=== PATIENT | male | born 1970 | race Caucasian/White ===

== ENCOUNTER 2021-01-13 23:43 | Inpatient (IN) | payer OTHER ==
[2021-01-14] MEDS ORDERED: ACETAMINOPHEN 500 MG TAB ONE ×2 (00:22→21:08)
[2021-01-14 01:18] LABS: Absolute Lymphocytes (CBC) 0.6 K/uL (0.7-4.9); Basophils % 0.6 % (0-1.3); Hematocrit 44.3 % (39.6-49.0); Lymphocytes % 17.8 % (15.3-44.8); Protime INR 1.21; RBC Red Blood Cell Count 4.59 M/uL (4.33-5.43)
[2021-01-14] MEDS ORDERED: METHYLPREDNISOLONE 125 MG INJ ONE ×3 (01:27→21:07)
[2021-01-14 01:48] LABS: ALT/SGPT 75 U/L (12-78); AST/SGOT 86 U/L (15-37); Albumin 3.5 g/dL (3.4-5.0); Alkaline Phosphatase 53 U/L (45-117); BUN Blood Urea Nitrogen 13 mg/dL (7-18); Bicarbonate 26 mmol/L (21-32); Bilirubin Direct 0.2 mg/dL (0-0.2); Bilirubin Total 0.5 mg/dL (0.2-1.0); Glucose Level 127 mg/dL (74-106); Magnesium 1.9 mg/dL (1.8-2.4); Potassium 3.5 mmol/L (3.5-5.1); Protein, Total 6.8 g/dL (6.4-8.2); Sodium Level 135 mmol/L (136-145); Troponin (Emerg Dept Use Only) < 0.02 ng/mL (0.0-0.045)
[2021-01-14 01:49] LABS: NT PRO-BNP < 5 pg/mL (<125)
--- NOTE | 2021-01-14 02:08 | ER ---
Nurse's Notes [facility] Name: Monty Padgett Age: 50 yrs Sex: Male : 1970 Arrival Date: 01/13/2021 Time: 23:46 Bed 16 Private MD: Diagnosis: Covid pneumonia. Hypoxia Presentation: 01/13 23:53 Chief complaint: Patient states: COVID+ since Monday, has been having severe headache iw and was told if his O2 drops to 93% to come to ER, at home it ranges from 88% to 94%, is also having cough and SOB. Coronavirus screen: Coronavirus screen: Client reports previous positive COVID test result. Ebola Screen: Patient negative for fever greater than or equal to 101.5 degrees Fahrenheit, and additional compatible Ebola Virus Disease symptoms Patient denies exposure to infectious person. Patient denies travel to an Ebola-affected area in the 21 days before illness onset. No symptoms or risks identified at this time. Initial Sepsis Screen: Does the patient meet any 2 criteria? No. Patient's initial sepsis screen is negative. Does the patient have a suspected source of infection?. Risk Assessment: Do you want to hurt yourself or someone else? Patient reports no desire to harm self or others. Onset of symptoms was January 11, 2021. 23:53 Method Of Arrival: Ambulatory iw 23:53 Acuity: SALVADOR 3 iw Historical: - Allergies: 23:56 Ciprofloxacin; iw - Home Meds: 23:56 testosterone [Active]; iw - PMHx: 23:56 Cirrhosis of liver; iw - PSHx: 23:56 None; iw - Immunization history:: Client reports having NOT received the Covid vaccine. - Social history:: Smoking status: Patient denies any tobacco usage or history of. Screenin/05 00:43 Abuse screen: Denies threats or abuse. Nutritional screening: No deficits noted. ea Tuberculosis screening: No symptoms or risk factors identified. Fall Risk None identified. Assessment: 01:00 General: Appears uncomfortable, Behavior is appropriate for age. Pain: Denies pain. ea Neuro: Level of Consciousness is awake, alert, obeys commands, Oriented to person, place, time. Cardiovascular: Patient's skin is warm and dry. Respiratory: Airway is patent Respiratory effort is labored, Respiratory pattern is tachypnea. Derm: Skin is dry, Skin is pale, Skin temperature is warm. Vital Signs: 01/13 23:53 BP 135 / 91; Pulse 101; Resp 20; Temp 103.1; Pulse Ox 94% on R/A; Weight 145.15 kg; iw Height 6 ft. 0 in. (182.88 cm); 01/14 01:13 Resp 26; Pulse Ox 87% ; ea 01:32 Pulse 81; Resp 28; Pulse Ox 95% on 3 lpm NC; ea 01:34 BP 129 / 71; ea 05:51 Pulse 73; Resp 22; Temp 99.6; Pulse Ox 98% on 3 lpm NC; ea 01/13 23:53 Body Mass Index 43.40 (145.15 kg, 182.88 cm) iw 01:13 ambulated approx 50 ft RA sats at 87% pt tachypneic, placed on O2 at 3L per nasal ea cannula ED Course: 01/13 23:46 Patient arrived in ED. wm 23:56 Triage completed. iw 23:57 Arm band placed on. iw 01/14 00:31 CXR XRAY In Process Unspecified. EDMS 00:35 Chad Reese MD is Attending Physician. pkl 00:43 Nai Bravo RN is Primary Nurse. ea 00:43 Patient has correct armband on for positive identification. Bed in low position. Call ea light in reach. Side rails up X2. 01:14 Inserted saline lock: 20 gauge in left antecubital area, using aseptic technique. ea 02:06 Frederick Rodas MD is Hospitalizing Provider. pkl 02:45 CT Chest For PE Angio In Process Unspecified. EDMS 05:50 No provider procedures requiring assistance completed. Patient admitted, IV remains in ea place. Administered Medications: 00:04 Drug: Tylenol 1000 mg Route: PO; iw 01:13 Drug: SOLU-Medrol (methylPrednisoLONE) 125 mg Route: IVP; Site: left antecubital; ea 05:52 Follow up: Response: No adverse reaction ea Outcome: 02:07 Decision to Hospitalize by Provider. pkl 05:51 Admitted to ER Hold. Please see [employer] for further documentation. ea 05:51 Condition: stable 05:51 Instructed on the need for admit, Demonstrated understanding of instructions. 01/15 11:43 Patient left the ED. aa5 Signatures: Dispatcher [employer] Chad Victor MD MD pkl Williams, Irene, RN RN iw Calderon, Audri, RN RN aa5 Nai Bravo RN RN Nilam Hartmann
--- NOTE | 2021-01-14 02:08 | EDPHYS ---
Physician Documentation [facility] Name: Monty Padgett Age: 50 yrs Sex: Male : 1970 Arrival Date: 01/13/2021 Time: 23:46 Bed 16 Private MD: ED Physician Chad Reese HPI: 01/14 00:55 This 50 yrs old Male presents to ER via Ambulatory with complaints of + pkl COVID, OXYGEN BETWEEN 88-94. 00:55 The patient has shortness of breath at rest. Onset: The symptoms/episode began/occurred pkl 3 day(s) ago. Associated signs and symptoms: Pertinent positives: productive cough. Patient tested positive for Covid 19 in this ER 2 days ago.. Historical: - Allergies: 01/13 23:56 Ciprofloxacin; iw - Home Meds: 23:56 testosterone [Active]; iw - PMHx: 23:56 Cirrhosis of liver; iw - PSHx: 23:56 None; iw - Immunization history:: Client reports having NOT received the Covid vaccine. - Social history:: Smoking status: Patient denies any tobacco usage or history of. ROS: 01/14 00:55 Eyes: Negative for injury, pain, redness, and discharge, ENT: Negative for injury, pkl pain, and discharge, Neck: Negative for injury, pain, and swelling, Cardiovascular: Negative for chest pain, palpitations, and edema. Respiratory: Positive for cough, with clear sputum, shortness of breath, at rest. Abdomen/GI: Negative for abdominal pain, nausea, vomiting, and diarrhea. Back: Negative for acute changes. : Negative for urinary symptoms. MS/extremity: Negative for acute changes. Skin: Negative for rash. Neuro: Negative for altered mental status, loss of consciousness. Exam: 00:55 Head/Face: Normocephalic, atraumatic. Eyes: Pupils equal round and reactive to light, pkl extra-ocular motions intact. Lids and lashes normal. Conjunctiva and sclera are non-icteric and not injected. Cornea within normal limits. Periorbital areas with no swelling, redness, or edema. ENT: Nares patent. No nasal discharge, no septal abnormalities noted. Tympanic membranes are normal and external auditory canals are clear. Oropharynx with no redness, swelling, or masses, exudates, or evidence of obstruction, uvula midline. Mucous membranes moist. Neck: Trachea midline, no thyromegaly or masses palpated, and no cervical lymphadenopathy. Supple, full range of motion without nuchal rigidity, or vertebral point tenderness. No Meningismus. Chest/axilla: Normal chest wall appearance and motion. Nontender with no deformity. No lesions are appreciated. Cardiovascular: Regular rate and rhythm with a normal S1 and S2. No gallops, murmurs, or rubs. Normal PMI, no JVD. No pulse deficits. 00:55 Respiratory: mild respiratory distress is noted, Respirations: labored breathing, that is mild, Breath sounds: rales, that are moderate, are scattered. 00:55 Abdomen/GI: Bowel sounds: normal, Palpation: abdomen is soft and non-tender, in all quadrants. 00:55 Back: Exam negative for acute changes. 00:55 : Exam negative for acute changes. 00:55 Musculoskeletal/extremity: Exam is negative for acute changes. 00:55 Skin: Exam negative for rash. 00:55 Neuro: Orientation: is normal, Mentation: is normal, Cranial nerves: grossly normal, Motor: is normal. Vital Signs: 01/13 23:53 BP 135 / 91; Pulse 101; Resp 20; Temp 103.1; Pulse Ox 94% on R/A; Weight 145.15 kg; iw Height 6 ft. 0 in. (182.88 cm); 01/14 01:13 Resp 26; Pulse Ox 87% ; ea 01:32 Pulse 81; Resp 28; Pulse Ox 95% on 3 lpm NC; ea 01:34 BP 129 / 71; ea 05:51 Pulse 73; Resp 22; Temp 99.6; Pulse Ox 98% on 3 lpm NC; ea 01/13 23:53 Body Mass Index 43.40 (145.15 kg, 182.88 cm) iw 01:13 ambulated approx 50 ft RA sats at 87% pt tachypneic, placed on O2 at 3L per nasal ea cannula MDM: 00:35 Patient medically screened. pkl 02:04 Data reviewed: vital signs, nurses notes, lab test result(s), EKG, radiologic studies, pkl plain films. ED course: Talked to Jan Piper ( EFFICIENCY ENGINEER ) Admit to Dr. Frederick Rodas. 01/14 00:45 Order name: Basic Metabolic Panel la1 05 00:45 Order name: CBC with Diff la01/14 00:45 Order name: LFT's la01/14 00:45 Order name: Magnesium la01/14 00:45 Order name: NT PRO-BNP la01/14 00:45 Order name: PT-INR la1 01/14 00:45 Order name: Troponin (emerg Dept Use Only); Complete Time: 19:08 la1 01/14 00:45 Order name: Blood Culture Adult (2); Complete Time: 19:08 la1 01/14 00:45 Order name: CRP; Complete Time: 19:08 la1 01/14 00:45 Order name: Ferritin; Complete Time: 19:08 la1 01/14 00:45 Order name: DD; Complete Time: 01:21 la1 01/14 00:45 Order name: Procalcitonin; Complete Time: 02:08 la1 01/14 00:46 Order name: Basic Metabolic Panel; Complete Time: 19:08 EDMS 01/14 00:46 Order name: CBC with Automated Diff; Complete Time: 01:21 EDMS 01/14 00:04 Order name: CXR XRAY; Complete Time: 19:08 iw 0805 00:46 Order name: Liver (Hepatic) Function; Complete Time: 19:08 EDMS 01/14 00:46 Order name: Magnesium; Complete Time: 19:08 EDMS 01/14 00:46 Order name: NT PRO-BNP; Complete Time: 19:08 EDMS 08 00:46 Order name: Protime (+INR); Complete Time: 01:21 EDMS 01/14 00:54 Order name: Lactate; Complete Time: 01:50 pkl 0805 01:22 Order name: CT Chest For PE Angio; Complete Time: 19:08 pkl 08/06 05:39 Order name: CBC with Automated Diff; Complete Time: 19:08 EDMS 08 05:55 Order name: Comprehensive Metabolic Panel; Complete Time: 19:08 EDMS 08 05:55 Order name: Lipid Profile; Complete Time: 19:08 EDMS 08 05:55 Order name: C-Reactive Protein; Complete Time: 19:08 EDMS 08 05:55 Order name: T4 Free; Complete Time: 19:08 EDMS 0806 05:55 Order name: Magnesium; Complete Time: 19:08 EDMS 01/15 05:55 Order name: Thyroid Stimulating Hormone; Complete Time: 19:08 EDMS 01/15 05:56 Order name: Ferritin; Complete Time: 19:08 EDAK 01/14 00:45 Order name: EKG; Complete Time: 00:46 la01/14 00:45 Order name: Cardiac monitoring; Complete Time: : la01/14 00:45 Order name: EKG - Nurse/Tech; Complete Time: 01/14 00:45 Order name: IV Saline Lock; Complete Time: : la01/14 00:45 Order name: Labs collected and sent; Complete Time: 01/14 00:45 Order name: O2 Per Protocol; Complete Time: 01/14 00:45 Order name: O2 Sat Monitoring; Complete Time: la01/14 00:46 Order name: Misc. Order: Please document room air sats with ambulation; Complete Time: 01:13 Administered Medications: 00:04 Drug: Tylenol 1000 mg Route: PO; iw 01:13 Drug: SOLU-Medrol (methylPrednisoLONE) 125 mg Route: IVP; Site: left antecubital; ea 05:52 Follow up: Response: No adverse reaction ea Disposition Summary: 01/14/21 02:07 Hospitalization Ordered Hospitalization Status: Inpatient Admission pkl Provider: Frederick Rodas pkjamarcus Condition: Stable pkl Problem: new pkl Symptoms: are unchanged pkl Bed/Room Type: Standard pkl Location: [facility] ER HOLD(01/14/21 04:41) Room Assignment: ERHOLD-(01/14/21 04:41) cg Diagnosis - Covid pneumonia. Hypoxia pkl Forms: - Medication Reconciliation Form pkl - SBAR form pkl Signatures: Dispatcher [employer] Chad Victor MD MD pkl Roxann Bolanos RN ZOË iw Jan Piper, MICHELLE-C LANDING WORKER-Cla1 Ewelina Smimons RN RN cg Nai Bravo RN RN ea Corrections: (The following items were deleted from the chart) 04:41 02:07 Telemetry/MedSurg (Inpatient) pkl cg 04:41 02:07 pkl cg
[2021-01-14 02:16] LABS: Ferritin 1131.9 ng/mL (26-388)
--- NOTE | 2021-01-14 02:37 | P.HP ---
Certification for Inpatient Patient admitted to: Inpatient With expected LOS: >2 Midnights Patient will require the following post-hospital care: None Practitioner: I am a practitioner with admitting privileges, knowledge of patient current condition, hospital course, and medical plan of care. Services: Services provided to patient in accordance with Admission requirements found in Title 42 Section 412.3 of the Code of Federal Regulations Patient History Date of Service: 01/14/21 Reason for admission: COVID-19 pneumonia History of Present Illness: 50-year-old male with history of cirrhosis of liver secondary to fatty liver presents emergency department for shortness of breath. Patient reports testing positive for Covid on 01/04/2021 with increasing shortness of breath, noted his saturations were in the high 80s at home. Patient was evaluated in the emergency department, labs were significant for platelet 123 D-dimer 989 sodium 135 GFR 71 glucose 127 ferritin 1131 C-reactive protein 20.8 chest x-ray with bilateral Covid pneumonia, patient requiring nasal cannula 2 to 3 L maintain saturations greater than 90% ED provider wishes to admit for further evaluation and management. 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 moist/pink, EOMI, Sclerae nonicteric Neck: Supple, 2+ carotid pulse no bruit, No LAD, Without JVD or thyroid abnormality Respiratory: Diminished, Other (Tachypnea) Cardiovascular: Regular rate/rhythm, Normal S1 S2 Capillary refill: <2 Seconds Gastrointestinal: Normal bowel sounds, No tenderness Musculoskeletal: No tenderness Integumentary: No rashes Neurological: Normal speech, Normal strength at 5/5 x4 extr, Normal tone, Normal affect Lymphatics: No axilla or inguinal lymphadenopathy - Studies Laboratory Data (last 24 hrs) 01/14/21 01:01: PT 14.0 H, INR 1.21 01/14/21 01:01: WBC 3.50 L, Hgb 15.2, Hct 44.3, Plt Count 123 L 01/14/21 01:01: Sodium 135 L, Potassium 3.5, BUN 13, Creatinine 1.10, Glucose 127 H, Magnesium 1.9, Total Bilirubin 0.5, AST 86 H, ALT 75, Alkaline Phosp hatase 53 Assessment and Plan - Plan Assessment: Acute hypoxic respiratory failure secondary to COVID-19 pneumonia Nonalcoholic cirrhosis of the 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 Pulmonology consulted. 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 DVT PPX: Lovenox Code status: Full Discharge Plan: Home Plan to discharge in: 48 Hours - Advance Directives Does patient have a Living Will: No Does patient have a Durable POA for Healthcare: No - Code Status/Comfort Care Code Status Assessed: Yes (Full code) Time Spent Managing Pts Care (In Minutes): 55
[2021-01-14] MEDS ORDERED: ONDANSETRON 4 MG/2 ML VIAL IV PRN (03:42)
[2021-01-14] MEDS ORDERED: ACETAMINOPHEN 500 MG TAB PO PRN (03:42)
[2021-01-14] MEDS ORDERED: MELATONIN 5 MG TABLET PO PRN (03:42)
[2021-01-14 05:55] VITALS: BMI 43.3
[2021-01-14] MEDS: BENZONATATE 100 MG CAP PO PRN ×2 (06:26→21:22)
[2021-01-14] MEDS ORDERED: BENZONATATE 100 MG CAP PO ONE ×2 (06:39→21:07)
--- NOTE | 2021-01-14 06:50 | P.PN ---
Subjective Date of Service: 01/14/21 Chief Complaint: COVID-19 pneumonia Subjective: Improving (slight improvement, still with cough, FOWLER, on 4L NC, inflammatory markers significantly elevated. no n/v/d) Physical Examination - Vital Signs Blood Pressure: 136/74 Pulse: 73 Respirations: 16 Pulse Ox (%): 90 - Studies Laboratory Data (last 24 hrs) 01/14/21 01:01: PT 14.0 H, INR 1.21 01/14/21 01:01: WBC 3.50 L, Hgb 15.2, Hct 44.3, Plt Count 123 L 01/14/21 01:01: Sodium 135 L, Potassium 3.5, BUN 13, Creatinine 1.10, Glucose 127 H, Magnesium 1.9, Total Bilirubin 0.5, AST 86 H, ALT 75, Alkaline Phosphatase 53 Assessment & Plan Physician Review Additional Text: Physical Exam: Gen: NAD, AAOx3 HEENT: normal conjunctiva, sclera anicteric CV: regular rate/rhythm, no edema Pulm: mild tachypnea on nasal cannula Abd: soft, NTND acute hypoxemic respiratory failure secondary to COVID-19 pneumonia -improving, on nasal cannula, elevated inflammatory markers, with dyspnea and hypoxia on ambulation -continue treatment -possible dc tomorrow with home O2
[2021-01-14] MEDS ORDERED: POTASSIUM CL SA 10 MEQ TAB PO ONE ×2 (07:40→10:34)
--- NOTE | 2021-01-14 08:57 | RAD REPORT ---
EXAM DESCRIPTION: RAD - Chest Single View - 01/14/2021 12:31 am CLINICAL HISTORY: SOB Chest pain. COMPARISON: No comparisons FINDINGS: Portable technique limits examination quality. Mild bilateral interstitial lung opacities are present suggesting viral infection/bronchitis. The hea rt is upper limit of normal in size. No displaced fractures.
[2021-01-14] MEDS ORDERED: VITAMIN D 1000 UNIT TAB PO SCH (09:00)
[2021-01-14] MEDS ORDERED: ASPIRIN EC 81 MG TAB PO SCH (09:00)
[2021-01-14] MEDS ORDERED: ENOXAPARIN 40 MG/0.4 ML SQ SCH (09:00)
[2021-01-14] MEDS ORDERED: ZINC SULFATE 220 MG CAP PO SCH (09:00)
[2021-01-14] MEDS ORDERED: THIAMINE HCL 100 MG TABLET PO SCH (09:00)
[2021-01-14] MEDS ORDERED: THIAMINE HCL 100 MG TABLET ONE (10:33)
[2021-01-14] MEDS ORDERED: ZINC SULFATE 220 MG CAP ONE (10:33)
[2021-01-14] MEDS ORDERED: ASPIRIN EC 81 MG TAB PO ONE (10:34)
[2021-01-14] MEDS ORDERED: ASCORBIC ACID 500 MG TABLET ONE ×4 (10:34→21:08)
[2021-01-14] MEDS ORDERED: VITAMIN D 1000 UNIT TAB ONE (10:34)
[2021-01-14] MEDS: METHYLPREDNISOLONE 40 MG INJ IV SCH ×2 (10:41→21:22)
[2021-01-14] MEDS: ASCORBIC ACID 500 MG TABLET PO SCH ×4 (10:41→21:22)
[2021-01-14] MEDS ORDERED: ENOXAPARIN 40 MG/0.4 ML SQ ONE (10:42)
--- NOTE | 2021-01-14 12:15 | RAD REPORT ---
EXAM DESCRIPTION: CTA Chest, Pulmonary Embolus Protocol COMPARISON: None. CLINICAL HISTORY: Cough;Dyspnea TECHNIQUE: CT images through the chest with IV contrast using the pulmonary embolus protocol. Multip lanar reformats. Automated exposure control was utilized on this examination as a dose lowering techn ique. FINDINGS: Pulmonary arteries and vascular: Suboptimal bolus. There is a filling defect in the proxim al left main pulmonary artery on series 401 image 33. Heart and mediastinum: Heart size is normal. No lymphadenopathy. Thyroid gland: Visualized portions are normal. Lungs: Multifocal bilateral groundglass opacities are present in a subpleural distribution. Airways: No filling defects. No bronchiectasis. Pleura: No pneumothorax. No significant pleural effusion. Subphrenic structures: Mild hepatic steatosis. Musculoskeletal and soft tissues: Within normal limits for age. IMPRESSION: 1. A filling defect in the left main pulmonary artery is favored to represent artifact a nd less likely a small embolus. Evaluation for branch emboli is limited due to bolus timing. 2. Multifocal pneumonia. Commonly reported imaging features of COVID-19 pneumonia are present. Other processes such as influenza pneumonia and organizing pneumonia, as can be seen with drug toxicity and connective tissue disease, can cause similar imaging pattern. Electronically signed by: David Ivy MD 01/14/2021 3:23 AM CDT Due to temporary technical issues with the PACS/Fluency reporting system, reports are being signed by the in house radiologist without review as a courtesy to ensure prompt reporting. The interpreting r adiologist is fully responsible for the content of the report.
[2021-01-14] MEDS ORDERED: IVERMECTIN 3 MG TABLET PO SCH (15:00)
--- NOTE | 2021-01-14 16:28 | P.CNS ---
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 - Social History Alcohol use: Yes CD- Drugs: No Caffeine use: Yes Place of Residence: Home Review of Systems General: Weakness Respiratory: Shortness of Breath Physical Examination Temp Pulse Resp BP Pulse Ox 97.8 F 73 16 136/74 90 L 01/14/21 12:00 01/14/21 14:35 01/14/21 14:35 01/14/21 14:35 01/14/21 14:35 General: Alert, Oriented x3, Cooperative, Acute distress Laboratory Data (last 24 hrs) 01/14/21 01:01: PT 14.0 H, INR 1.21 01/14/21 01:01: WBC 3.50 L, Hgb 15.2, Hct 44.3, Plt Count 123 L 01/14/21 01:01: Sodium 135 L, Potassium 3.5, BUN 13, Creatinine 1.10, Glucose 127 H, Magnesium 1.9, Total Bilirubin 0.5, AST 86 H, ALT 75, Alkaline Phosphatase 53 - Problems (1) Pneumonia due to COVID-19 virus Current Visit: Yes Status: Acute Plan: Age 50 AW COVID pneumoniaandresp failure/CT scan covid penumonia
[2021-01-14] MEDS ORDERED: MELATONIN 5 MG TABLET PO ONE (22:20)
[2021-01-15 05:14] VITALS: BP 118/73; TEMP 98.2
[2021-01-15 05:20] LABS: Absolute Lymphocytes (CBC) 0.7 K/uL (0.7-4.9); Basophils % 0.2 % (0-1.3); Hematocrit 47.1 % (39.6-49.0); Lymphocytes % 11.5 % (15.3-44.8); MPV 8.4 fL (7.6-11.3)
[2021-01-15 05:54] LABS: ALT/SGPT 64 U/L (12-78); AST/SGOT 59 U/L (15-37); Albumin 3.2 g/dL (3.4-5.0); Alkaline Phosphatase 64 U/L (45-117); BUN Blood Urea Nitrogen 14 mg/dL (7-18); Bicarbonate 28 mmol/L (21-32); Bilirubin Total 0.4 mg/dL (0.2-1.0); Ferritin 1124.6 ng/mL (26-388); Glucose Level 184 mg/dL (74-106); HDL Cholesterol 35 mg/dL (40-60); LDL Cholesterol, Calculated 43 (<130); Magnesium 2.3 mg/dL (1.8-2.4); Potassium 4.1 mmol/L (3.5-5.1); Protein, Total 6.8 g/dL (6.4-8.2); Sodium Level 136 mmol/L (136-145)
--- NOTE | 2021-01-15 07:32 | P.DS ---
Admission Date: 01/14/21 Discharge Date: 01/15/21 Disposition: ROUTINE DISCHARGE Discharge Condition: GOOD Reason for Admission: COVID-19 pneumonia Consultations: Pulm - Dr. Serrato Procedures: Chest Single View - 01/14/2021 FINDINGS: Portable technique limits examination quality. Mild bilateral interstitial lung opacities are present suggesting viral infection/bronchitis. The heart is upper limit of normal in size. No displaced fractures. CTA Chest, Pulmonary Embolus Protocol FINDINGS: Pulmonary arteries and vascular: Suboptimal bolus. There is a filling defect in the proximal left main pulmonary artery on series 401 image 33. Heart and mediastinum: Heart size is normal. No lymphadenopathy. Thyroid gland: Visualized portions are normal. Lungs: Multifocal bilateral groundglass opacities are present in a subpleural distribution. Airways: No filling defects. No bronchiectasis. Pleura: No pneumothorax. No significant pleural effusion. Subphrenic structures: Mild hepatic steatosis. Musculoskeletal and soft tissues: Within normal limits for age. IMPRESSION: 1. A filling defect in the left main pulmonary artery is favored to represent artifact and less likely a small embolus. Evaluation for branch emboli is limited due to bolus timing. 2. Multifocal pneumonia. Commonly reported imaging features of COVID-19 pneumonia are present. Other processes such as influenza pneumonia and organizing pneumonia, as can be seen with drug toxicity and connective tissue disease, can cause similar imaging pattern. 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 Patient reports testing positive for Covid on 01/04/2021 with increasing shortness of breath, noted his saturations were in the high 80s at home. Patient was evaluated in the emergency department, labs were significant for platelet 123 D-dimer 989 sodium 135 GFR 71 glucose 127 ferritin 1131 C-reactive protein 20.8 chest x-ray with bilateral Covid pneumonia, patient requiring nasal cannula 2 to 3 L maintain saturations greater than 90% ED provider wishes to admit for further evaluation and management. Hospital Course: Patient received treatment per Covid protocol with IV steroids, vitamin supplementation, and oxygen supplementation. He had improvement of his symptoms and his inflammatory markers. His sense of taste returned. He was breathing comfortably on 2 L nasal cannula. He was discharged home with steroids, vitamin supplementation, and home oxygen. He is to follow-up with Dr. Serrato in approximately 1-2 week. Vital Signs/Physical Exam: Temp Pulse Resp BP Pulse Ox 98.2 F 69 24 H 118/73 94 01/15/21 04:00 01/15/21 04:00 01/15/21 04:00 01/15/21 04:00 01/15/21 04:00 General: Alert, In no apparent distress, Oriented x3 HEENT: Sclerae nonicteric Respiratory: Diminished (at bases bilaterally, nonlabored on 2 LNC) Cardiovascular: No edema, Regular rate/rhythm, Normal S1 S2 Gastrointestinal: Soft and benign, Non-distended, No tenderness Musculoskeletal: No erythema, No tenderness Integumentary: No rashes Laboratory Data at Discharge: WBC 6.00 K/uL (4.3-10.9) D 01/15/21 04:18 Hgb 16.2 g/dL (13.6-17.9) 01/15/21 04:18 Hct 47.1 % (39.6-49.0) 01/15/21 04:18 Plt Count 174 K/uL (152-406) D 01/15/21 04:18 PT 14.0 SECONDS (9.5-12.5) H 01/14/21 01:01 INR 1.21 01/14/21 01:01 Sodium 136 mmol/L (136-145) 01/15/21 04:18 Potassium 4.1 mmol/L (3.5-5.1) 01/15/21 04:18 BUN 14 mg/dL (7-18) 01/15/21 04:18 Creatinine 0.85 mg/dL (0.55-1.3) 01/15/21 04:18 Glucose 184 mg/dL (74-106) H 01/15/21 04:18 Magnesium 2.3 mg/dL (1.8-2.4) 01/15/21 04:18 Total Bilirubin 0.4 mg/dL (0.2-1.0) 01/15/21 04:18 AST 59 U/L (15-37) H 01/15/21 04:18 ALT 64 U/L (12-78) 01/15/21 04:18 Alkaline Phosphatase 64 U/L (45-117) 01/15/21 04:18 Triglycerides 83 mg/dL (<150) 01/15/21 04:18 Cholesterol 95 mg/dL (<200) 01/15/21 04:18 HDL Cholesterol 35 mg/dL (40-60) L 01/15/21 04:18 Cholesterol/HDL Ratio 2.71 01/15/21 04:18 Home Medications: Ascorbic Acid [Vitamin C*] 500 mg PO QID 30 Days #120 tablet 01/15/21 Aspirin [Aspirin EC 81 MG] 81 mg PO DAILY 30 Days #30 tablet. 01/15/21 Benzonatate [Tessalon Perle*] 100 mg PO TID PRN 10 Days #30 cap 01/15/21 Cholecalciferol (Vitamin D3) [Vitamin D 1000 Iu Tab*] 4,000 unit PO DAILY 30 Days #120 tab 01/15/21 Thiamine HCl [Vitamin B-1*] 200 mg PO DAILY 30 Days #60 tablet 01/15/21 Zinc Sulfate [Zinc Sulfate*] 220 mg PO DAILY 30 Days #30 cap 01/15/21 predniSONE [Deltasone] 20 mg PO DAILY 14 Days #21 tab 01/15/21 New Medications: Aspirin [Aspirin EC 81 MG] 81 mg PO DAILY 30 Days #30 tablet. predniSONE [Deltasone] 20 mg PO DAILY 14 Days #21 tab Benzonatate [Tessalon Perle*] 100 mg PO TID PRN 10 Days #30 cap PRN Reason: Cough Thiamine HCl [Vitamin B-1*] 200 mg PO DAILY 30 Days #60 tablet Ascorbic Acid [Vitamin C*] 500 mg PO QID 30 Days #120 tablet Cholecalciferol (Vitamin D3) [Vitamin D 1000 Iu Tab*] 4,000 unit PO DAILY 30 Days #120 tab Zinc Sulfate [Zinc Sulfate*] 220 mg PO DAILY 30 Days #30 cap Physician Discharge Instructions: You have COVID-19 pneumonia. Improved with steroids and vitamin supplementation. You are discharged with these medications and oxygen. Maintain your oxygen saturation >90%. Expected to drop lower when you move around. You can turn up your oxygen at that time. Ok as long as your oxygen levels come back up in a few minutes. Follow up with Dr. Serrato in ~1 week. Call his office to schedule phone follow up visit. Diet: Regular Activity: Ad ros Followup: Quentin Serrato MD [ACTIVE - CAN ADMIT] - NONE,NONE [Primary Care Provider] - Time spent managing pt's care (in minutes): 45
[2021-01-15 11:56] VITALS: O2SAT 96
== END 2021-01-15 11:43 | disposition home or self-care (01) | DRG 177 ==
LOC: ER 23:43 → ERHOLD 01-14 02:30
PROVIDERS: ADMIT Hospitalist; ATTEND Hospitalist
DX: U07.1 COVID-19 (principal); J12.82 Pneumonia due to coronavirus disease 2019; J96.01 Acute respiratory failure with hypoxia; K76.0 Fatty (change of) liver, not elsewhere classified; K74.60 Unspecified cirrhosis of liver; D69.6 Thrombocytopenia, unspecified
CPT/HCPCS: 36415; 71045; 71275; 80048; 80053; 80061; 80076; 82728; 83605; 83735; 83880; 84145; 84439; 84443; 84484; 85025; 85379; 85610; 86140; 87040; 93005; 96374; 99285; J1650; J2930; Q9967

== ENCOUNTER 2021-01-17 18:34 | Inpatient (IN) | payer OTHER ==
[2021-01-17 20:12] LABS: Absolute Lymphocytes (CBC) 0.6 K/uL (0.7-4.9); Basophils % 0.2 % (0-1.3); Hematocrit 45.4 % (39.6-49.0); Lymphocytes % 7.5 % (15.3-44.8); MPV 7.6 fL (7.6-11.3); RBC Red Blood Cell Count 4.64 M/uL (4.33-5.43)
[2021-01-17 20:13] LABS: Protime INR 1.06
[2021-01-17] MEDS ORDERED: METHYLPREDNISOLONE 125 MG INJ ONE (20:13)
--- NOTE | 2021-01-17 20:18 | P.HP ---
Certification for Inpatient Patient admitted to: Inpatient With expected LOS: >2 Midnights Patient will require the following post-hospital care: None Practitioner: I am a practitioner with admitting privileges, knowledge of patient current condition, hospital course, and medical plan of care. Services: Services provided to patient in accordance with Admission requirements found in Title 42 Section 412.3 of the Code of Federal Regulations Patient History Date of Service: 01/17/21 Reason for admission: Hypoxia, Covid-19 pneumonia History of Present Illness: 50-year-old male with history of cirrhosis of liver secondary to fatty liver presents to the emergency department for shortness of breath. Patient tested positive for Covid on 01/04/2021 and was admitted on 01/14/2021 for 1 day. Patient was treated with IV steroids and sent home on home oxygen 2 L per nasal cannula. Over the course of the last 24 hours patient's ox requirement has significantly increased, patient was saturating in the 60s to 70s on 4 L per nasal cannula at home. Patient evaluated in the emergency department, currently on 15 L/min via nasal cannula saturating in the low 90s. Worsening chest x-ray, ED provider wishes to admit for further evaluation and management. Allergies No Known Allergies Allergy (Unverified 01/14/21 03:42) Home Medications: Ascorbic Acid [Vitamin C*] 500 mg PO QID 30 Days #120 tablet 01/15/21 Aspirin [Aspirin EC 81 MG] 81 mg PO DAILY 30 Days #30 tablet. 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 moist/pink, EOMI, Sclerae nonicteric Neck: Supple, 2+ carotid pulse no bruit, No LAD, Without JVD or thyroid abnormality Respiratory: Diminished, Other (Tachypnea, dyspnea) Cardiovascular: Regular rate/rhythm, Normal S1 S2 Gastrointestinal: Normal bowel sounds, No tenderness Musculoskeletal: No tenderness Integumentary: No rashes Neurological: Normal gait, Normal speech, Normal strength at 5/5 x4 extr, Normal tone, Normal affect Lymphatics: No axilla or inguinal lymphadenopathy Assessment and Plan - Plan Assessment: Acute hypoxic respiratory failure secondary to COVID-19 pneumoniafailed outpatient therapy with home oxygen Nonalcoholic cirrhosis of the liver secondary to fatty liver disease Plan: Acute hypoxic respiratory failure secondary to COVID-19 pneumoniafailed outpatient therapy with home oxygen: Continue with IV steroids, oral supplements, supplemental oxygen as needed, pulmonology consult, ivermectin, baricitinib. Full dose anticoagulation with Xarelto. Patient with significantly increased oxygen requirement. Nonalcoholic cirrhosis of the liver secondary to fatty liver disease: Stable, monitor daily labs. DVT PPX:Xarelto Code status: Full Discharge Plan: Home Plan to discharge in: Greater than 2 days - Advance Directives Does patient have a Living Will: No Does patient have a Durable POA for Healthcare: No - Code Status/Comfort Care Code Status Assessed: Yes (Full code) Critical Care: No Time Spent Managing Pts Care (In Minutes): 55
[2021-01-17] MEDS ORDERED: ONDANSETRON 4 MG/2 ML VIAL IV PRN (20:43)
[2021-01-17] MEDS ORDERED: METHYLPREDNISOLONE 40 MG INJ IV SCH (21:00)
[2021-01-17] MEDS: ASCORBIC ACID 500 MG TABLET PO SCH (21:00)
[2021-01-17 21:20] LABS: ALT/SGPT 50 U/L (12-78); AST/SGOT 62 U/L (15-37); Albumin 3.2 g/dL (3.4-5.0); Alkaline Phosphatase 57 U/L (45-117); BUN Blood Urea Nitrogen 19 mg/dL (7-18); Bicarbonate 30 mmol/L (21-32); Bilirubin Direct 0.3 mg/dL (0-0.2); Bilirubin Total 0.7 mg/dL (0.2-1.0); Ferritin 1963.6 ng/mL (26-388); Glucose Level 186 mg/dL (74-106); Magnesium 2.6 mg/dL (1.8-2.4); NT PRO-BNP 52 pg/mL (<125); Potassium 3.9 mmol/L (3.5-5.1); Sodium Level 139 mmol/L (136-145); Troponin (Emerg Dept Use Only) < 0.02 ng/mL (0.0-0.045)
[2021-01-17] MEDS ORDERED: ASCORBIC ACID 500 MG TABLET ONE (21:26)
--- NOTE | 2021-01-17 21:27 | ER ---
Nurse's Notes [facility] Name: Monty Padgett Age: 50 yrs Sex: Male : 1970 Arrival Date: 01/17/2021 Time: 18:45 Bed 16 Private MD: Diagnosis: Hypoxemia;Other pneumonia, unspecified organism Presentation: 01/17 19:11 Chief complaint: Patient states: Discharged on Monday with 2 lpm NC, increased SOB jl7 after getting home, pulse ox in triage 87% on 5 lpm NC, symptoms started 1.5 weeks ago. Coronavirus screen: Client denies travel out of the [place] in the last 14 days. At this time, the client does not indicate any symptoms associated with coronavirus-19. Ebola Screen: No symptoms or risks identified at this time. Initial Sepsis Screen: Does the patient meet any 2 criteria? No. Patient's initial sepsis screen is negative. Does the patient have a suspected source of infection? No. Patient's initial sepsis screen is negative. Risk Assessment: Do you want to hurt yourself or someone else? Patient reports no desire to harm self or others. Onset of symptoms was January 06, 2021. 19:11 Method Of Arrival: Wheelchair jl7 19:11 Acuity: SALVADOR 2 jl7 Triage Assessment: 19:15 General: Appears distressed, uncomfortable, Behavior is calm, cooperative, appropriate jl7 for age. Pain: Denies pain. Respiratory: Reports shortness of breath Airway is patent Respiratory effort is even, shallow, Respiratory pattern is symmetrical, tachypnea Onset: The symptoms/episode began/occurred gradually, the patient has moderate shortness of breath. Historical: - Allergies: 19:15 Ciprofloxacin; jl7 - PMHx: 19:15 cirrhosis of liver; jl7 - Immunization history:: Client reports having NOT received the Covid vaccine. - Social history:: Smoking status: Patient denies any tobacco usage or history of. Screenin:00 Abuse screen: Denies threats or abuse. Denies injuries from another. Nutritional lp1 screening: No deficits noted. Tuberculosis screening: No symptoms or risk factors identified. Fall Risk None identified. Assessment: 20:15 General: Appears in no apparent distress. Behavior is appropriate for age. Pain: Denies lp1 pain. Neuro: Level of Consciousness is awake, alert, obeys commands, Oriented to person, place, time, situation. Cardiovascular: Patient's skin is warm and dry. Rhythm is sinus rhythm. Respiratory: Airway is patent Respiratory effort is even, Breath sounds are diminished in left posterior lower lobe and right posterior lower lobe. GI: Abdomen is non-distended. : No signs and/or symptoms were reported regarding the genitourinary system. EENT: No signs and/or symptoms were reported regarding the EENT system. Derm: Skin is intact, Skin is dry, Skin is normal. Musculoskeletal: No deficits noted. Vital Signs: 19:11 BP 127 / 84; Pulse 90; Resp 26; Temp 97.7; Pulse Ox 87% on 5 lpm NC; Weight 145.15 kg; jl7 Height 6 ft. (182.88 cm); Pain 0/10; 19:11 Body Mass Index 43.40 (145.15 kg, 182.88 cm) jl7 ED Course: 18:45 Patient arrived in ED. as 19:15 Anoop Hilario PA is PHCP. cp 19:15 Chad Reese MD is Attending Physician. cp 19:15 Triage completed. jl7 19:15 Arm band placed on right wrist. jl7 19:34 Radhika Boyle, ZOË is Primary Nurse. lp1 19:45 Patient has correct armband on for positive identification. Bed in low position. Call lp1 light in reach. athletic monitor on. Pulse ox on. NIBP on. 19:53 Inserted saline lock: 20 gauge in right hand, using aseptic technique. Blood collected. lp1 21:25 Zay Moss MD is Hospitalizing Provider. cp 21:30 No provider procedures requiring assistance completed. Patient admitted, IV remains in lp1 place. Administered Medications: 20:18 Drug: SOLU-Medrol (methylPrednisoLONE) 125 mg Route: IVP; Site: right hand; lp1 21:30 Follow up: Response: No adverse reaction lp1 21:31 Drug: NS 0.9% 1000 ml Route: IV; Rate: 1000 ml; Site: right hand; lp1 22:15 Follow up: IV Status: Completed infusion; IV Intake: 1000ml lp1 Intake: 22:15 IV: 1000ml; Total: 1000ml. lp1 Outcome: 21:27 Decision to Hospitalize by Provider. cp 21:30 Admitted to ER Hold. Please see [facility] for further documentation. lp1 21:30 Condition: stable 21:30 Instructed on the need for admit. 01/20 14:37 Patient left the ED. ll1 Signatures: Jammie Pena Laura, RN RN lp1 Anoop Hilario PA PA cp Leal, Jahala, RN RN jl7 Abdifatah Greenberg RN RN ll1 Corrections: (The following items were deleted from the chart) 01/18 07:30 01/17 20:30 No provider procedures requiring assistance completed. lp1 lp1 01/18 07:30 01/17 20:30 Patient admitted, IV remains in place. lp1 lp1
--- NOTE | 2021-01-17 21:27 | EDPHYS ---
Physician Documentation Formerly [facility] Name: Monty Padgett Age: 50 yrs Sex: Male : 1970 Arrival Date: 01/17/2021 Time: 18:45 Bed 16 Private MD: ED Physician Chad Reese HPI: 01/17 19:17 This 50 yrs old Male presents to ER via Wheelchair with complaints of cp Shortness Of Breath - covid+. 19:17 The patient has shortness of breath at rest. cp 19:17 Onset: The symptoms/episode began/occurred gradually, and became worse today. cp 19:17 Duration: The symptoms are continuous, and are steadily getting worse. Associated signs cp and symptoms: Pertinent negatives: chest pain, fever. The patient has been recently seen at the [facility] Emergency Department, last week, for similar complaints discharge to home with home oxygen, patient reports worsening shortness of breath. Admitted for COVID pneumonia. Historical: - Allergies: 19:15 Ciprofloxacin; jl7 - PMHx: 19:15 cirrhosis of liver; jl7 - Immunization history:: Client reports having NOT received the Covid vaccine. - Social history:: Smoking status: Patient denies any tobacco usage or history of. ROS: 19:20 Eyes: Negative for injury, pain, redness, and discharge. cp 19:20 Constitutional: Negative for body aches, chills, fever, poor PO intake. 19:20 ENT: Negative for ear pain, sore throat, difficulty swallowing, difficulty handling secretions. 19:20 Cardiovascular: Negative for chest pain, edema, palpitations. 19:20 Respiratory: Positive for cough, shortness of breath, at rest. Negative for wheezing. 19:20 Abdomen/GI: Negative for abdominal pain, nausea, vomiting, and diarrhea. 19:20 Back: Negative for radiated pain. 19:20 Skin: Negative for cellulitis, rash. 19:20 Neuro: Negative for altered mental status, headache, syncope, weakness. 19:20 All other systems are negative. Exam: 19:25 Constitutional: The patient appears alert, awake, non-diaphoretic, non-toxic, well cp developed, well nourished, obese, in obvious distress, mildly distressed. 19:25 Head/Face: Normocephalic, atraumatic. cp 19:25 Eyes: Periorbital structures: appear normal, Pupils: equal, round, and reactive to light and accomodation, Extraocular movements: intact throughout, Conjunctiva: normal, no exudate, no injection, Sclera: no appreciated abnormality, Lids and lashes: appear normal, bilaterally. 19:25 ENT: External ear(s): are unremarkable, Nose: is normal, Mouth: Lips: moist, Oral mucosa: moist, Posterior pharynx: Airway: no evidence of obstruction, patent. 19:25 Neck: ROM/movement: is normal, is supple, without pain, no range of motions limitations, no meningismus. 19:25 Chest/axilla: Inspection: normal, Palpation: is normal, no crepitus, no tenderness. 19:25 Cardiovascular: Rate: normal, Rhythm: regular, Edema: is not appreciated, JVD: is not appreciated. 19:25 Respiratory: mild respiratory distress is noted, Respirations: labored breathing, that is moderate, shallow respirations, that is moderate, Breath sounds: decreased breath sounds, that are moderate, throughout, stridor, is not appreciated, wheezing: is not appreciated. 19:25 Abdomen/GI: Inspection: abdomen appears normal, Bowel sounds: active, all quadrants, Palpation: abdomen is soft and non-tender, in all quadrants. 19:25 Back: pain, is absent, ROM is normal. 19:25 Skin: no rash present. 19:25 Neuro: Orientation: to person, place \T\ time. Mentation: is normal, Cerebellar function: is grossly normal, Motor: moves all fours, strength is normal, Sensation: is normal. 19:50 ECG was reviewed by the Attending Physician. cp Vital Signs: 19:11 BP 127 / 84; Pulse 90; Resp 26; Temp 97.7; Pulse Ox 87% on 5 lpm NC; Weight 145.15 kg; jl7 Height 6 ft. (182.88 cm); Pain 0/10; 19:11 Body Mass Index 43.40 (145.15 kg, 182.88 cm) jl7 MDM: 19:17 Patient medically screened. cp 21:30 Data reviewed: vital signs, nurses notes, lab test result(s), EKG, radiologic studies, cp plain films, I have discussed the patient's presentation/case with the attending Emergency Department Physician; and as a result, I will admit patient. 21:30 Test interpretation: by ED physician or midlevel provider: ECG, plain radiologic cp studies. Counseling: I had a detailed discussion with the patient and/or guardian regarding: the historical points, exam findings, and any diagnostic results supporting the discharge/admit diagnosis, lab results, radiology results, the need for further work-up and treatment in the hospital. Physician consultation: Jan VINCENT was called at 21:30, was contacted at 21:30, regarding admission, to the telemetry unit. patient's condition, and will see patient in ED, shortly. 01/17 19:16 Order name: Basic Metabolic Panel; Complete Time: 21:27 cp 01/17 21:27 Interpretation: Normal except: GLUC 186; BUN 19. cp 01/17 19:16 Order name: CBC with Diff; Complete Time: 21: cp 01/17 21:28 Interpretation: Normal except: WBC 7.40; DARVIN% 86.1; LYM% 7.5; LYMA 0.6. cp 01/17 19:16 Order name: LFT's; Complete Time: 21:27 cp 01/17 21:27 Interpretation: Normal except: AST 62; BILID 0.3; ALB 3.2; GLOB 3.8; A/G 0.8. cp 01/17 19:16 Order name: Magnesium; Complete Time: 21:27 cp 01/17 19:16 Order name: NT PRO-BNP; Complete Time: 21:27 cp 01/17 19:16 Order name: PT-INR; Complete Time: 21: cp 01/17 19:16 Order name: Troponin (emerg Dept Use Only); Complete Time: 21:27 cp 01/17 19:16 Order name: CRP; Complete Time: 21:27 la1 01/17 19:16 Order name: CRP cp 01/17 19:16 Order name: Ferritin; Complete Time: 21:27 cp 01/17 21:28 Interpretation: Abnormal: VARUN 1963.6. cp 01/17 19:16 Order name: D-Dimer; Complete Time: 21:07 cp 01/17 19:17 Order name: ABG cp 01/17 21:41 Order name: ABG Arterial Blood Gas; Complete Time: 22:29 EDMS 01/18 04:59 Order name: CBC with Automated Diff EDMS 01/18 05:10 Order name: D-Dimer EDMS 01/18 05:28 Order name: Comprehensive Metabolic Panel EDMS 01/18 05:28 Order name: C-Reactive Protein EDMS 01/18 05:28 Order name: Ferritin EDMS 01/18 09:02 Order name: Manual Differential EDMS 01/18 09:50 Order name: Urinalysis EDMS 01/18 10:06 Order name: Urine Microscopic Only EDMS 01/19 05:14 Order name: CBC with Automated Diff EDMS 01/19 05:18 Order name: D-Dimer EDMS 01/19 05:44 Order name: Comprehensive Metabolic Panel EDMS 01/19 05:44 Order name: C-Reactive Protein EDMS 01/19 05:44 Order name: Ferritin EDMS 01/19 22:15 Order name: Glucose, Ancillary Testing EDMS 01/20 06:19 Order name: CBC with Automated Diff EDMS 01/20 06:36 Order name: Comprehensive Metabolic Panel EDMS 01/20 06:36 Order name: C-Reactive Protein EDMS 01/17 19:16 Order name: XRAY Chest (1 view) cp 08/08 19:16 Order name: EKG; Complete Time: 19:16 cp 08/08 19:16 Order name: Cardiac monitoring; Complete Time: 19:53 cp 08/08 19:16 Order name: EKG - Nurse/Tech; Complete Time: 19:53 cp 08/08 19:16 Order name: IV Saline Lock; Complete Time: 19:53 cp 08/08 19:16 Order name: Labs collected and sent; Complete Time: 19:53 cp /08 19:16 Order name: O2 Per Protocol; Complete Time: 19:53 cp 01/17 19:16 Order name: O2 Sat Monitoring; Complete Time: 19:53 cp 08/ 21:08 Order name: CT Chest For PE Angio cp 01/17 21:56 Order name: RAD; Complete Time: 22:29 EDMS 01/18 10:58 Order name: CT EDMS 01/20 06:36 Order name: Ferritin EDMS 01/20 07:45 Order name: D-Dimer EDMS 01/20 07:56 Order name: Glucose, Ancillary Testing EDMS 01/20 12:58 Order name: Glucose, Ancillary Testing EDMS EC:50 Rate is 84 beats/min. Rhythm is regular. DC interval is normal. QRS interval is cp prolonged at 102 msec. QT interval is normal. T waves are Inverted in leads III, V3. Interpreted by me. Reviewed by me. Administered Medications: 20:18 Drug: SOLU-Medrol (methylPrednisoLONE) 125 mg Route: IVP; Site: right hand; lp1 21:30 Follow up: Response: No adverse reaction lp1 21:31 Drug: NS 0.9% 1000 ml Route: IV; Rate: 1000 ml; Site: right hand; lp1 22:15 Follow up: IV Status: Completed infusion; IV Intake: 1000ml lp1 Disposition: 01/18 04:07 Co-signature as Attending Physician, Chad Reese MD. pkl Disposition Summary: 01/17/21 21:27 Hospitalization Ordered Hospitalization Status: Inpatient Admission cp Provider: Zay Moss cp Condition: Fair cp Problem: an ongoing problem cp Symptoms: have improved cp Bed/Room Type: Standard cp Location: Telemetry/MedSurg (Inpatient)(01/20/21 12:18) aa5 Room Assignment: [facility](01/20/21 12:18) aa5 Diagnosis - Hypoxemia cp - Other pneumonia, unspecified organism cp Discharge Instructions: - Discharge Summary Sheet lp1 Forms: - SBAR form lp1 - Medication Reconciliation Form cp Signatures: Dispatcher [employer] EDMS Chad Reese MD MD pkSofiya Overton, RN RN aa5 Radhika Boyle RN RN lp1 Jan Piper FNP-C HOUSEKEEPING/LAUNDRY SUPERVISOR-Cla1 Anoop Hilario PA PA cp Ewelina Simmons, RN RN Stephen Gordon RN RN jl7 Corrections: (The following items were deleted from the chart) 01/17 23:10 21:27 Telemetry/MedSurg (Inpatient) cp cg 23:10 21:27 cp cg 01/19 19:21 08 19:20 Constitutional: Negative for body aches, chills, fever, poor PO intake, cp cp 01/19 19:21 08 19:20 Cardiovascular: Negative for chest pain, edema, palpitations, cp cp 01/19 19:21 08 19:20 Respiratory: Positive for cough, shortness of breath, at rest. Negative for cp wheezing, cp 01/19 19:21 08/09 19:20 Eyes: Negative for injury, pain, redness, and discharge, cp cp 01/19 19:21 08 19:20 ENT: Negative for ear pain, sore throat, difficulty swallowing, difficulty cp handling secretions, cp 01/19 19:21 08 19:20 Abdomen/GI: Negative for abdominal pain, nausea, vomiting, and diarrhea, cp cp 01/19 19:21 08 19:20 Back: Negative for radiated pain, cp cp 01/19 19: 08 19:20 Skin: Negative for cellulitis, rash, cp cp 01/19 19:21 08 19:20 Neuro: Negative for altered mental status, headache, syncope, weakness, cp cp 01/19 19: 08 19:20 All other systems are negative, cp cp 01/20 12:18 01/17 23:10 [facility] ER HOLD cg aa5 01/20 12:18 01/17 23:10 [facility]- aa5
[2021-01-17 21:40] LABS: Blood Gas Oxyhemoglobin 88.1 % (94-97); Blood O2 Saturation 89.7 % (92-98.5)
[2021-01-17] MEDS ORDERED: NA CHLORIDE 0.9% 1,000 ML ONE (21:51)
--- NOTE | 2021-01-17 21:54 | RAD REPORT ---
EXAM DESCRIPTION: RAD - Chest Single View - 01/17/2021 8:29 pm CLINICAL HISTORY: SOB COMPARISON: <Comparisons> FINDINGS: Worsening bilateral airspace disease compared with 01/14/2021. The heart size is within no rmal limits.No acute osseous abnormality. No significant pleural effusions or pneumothorax. IMPRESSION: Worsening bilateral airspace disease concerning for multifocal pneumonia.
[2021-01-18 04:48] LABS: Absolute Lymphocytes (CBC) 0.4 K/uL (0.7-4.9); Basophils % 0.1 % (0-1.3); Hematocrit 45.4 % (39.6-49.0); Lymphocytes % 5.7 % (15.3-44.8); MPV 8.2 fL (7.6-11.3); RBC Red Blood Cell Count 4.63 M/uL (4.33-5.43)
[2021-01-18 05:28] LABS: ALT/SGPT 48 U/L (12-78); AST/SGOT 60 U/L (15-37); Albumin 2.9 g/dL (3.4-5.0); Alkaline Phosphatase 58 U/L (45-117); BUN Blood Urea Nitrogen 17 mg/dL (7-18); Bicarbonate 30 mmol/L (21-32); Bilirubin Total 0.7 mg/dL (0.2-1.0); Ferritin 2343.1 ng/mL (26-388); Glucose Level 193 mg/dL (74-106); Protein, Total 6.7 g/dL (6.4-8.2); Sodium Level 140 mmol/L (136-145)
--- NOTE | 2021-01-18 06:33 | P.PN ---
Subjective Date of Service: 01/18/21 Chief Complaint: Hypoxia, Covid-19 pneumonia Subjective: No new changes (feeling about the same, headache is better, no diarrhea) <Lola Arevalo - Last Filed: 01/18/21 17:34> Date of Service: 01/18/21 <Frederick Rodas - Last Filed: 01/18/21 21:22> Review of Systems 10-point ROS is otherwise unremarkable <Lola Arevalo - Last Filed: 01/18/21 17:34> Physical Examination - Vital Signs Temperature: 98.5 F Blood Pressure: 118/91 Pulse: 91 Respirations: 28 Pulse Ox (%): 92 - Studies Laboratory Data (last 24 hrs) 01/17/21 18:50: PT 12.2, INR 1.06 01/17/21 18:50: WBC 7.40 D, Hgb 15.3, Hct 45.4, Plt Count 207 01/17/21 18:50: Sodium 139, Potassium 3.9, BUN 19 H, Creatinine 0.74, Glucose 186 H, Magnesium 2.6 H, Total Bilirubin 0.7, AST 62 H, ALT 50, Alkaline Phosphatase 57 <Lola Arevalo - Last Filed: 01/18/21 17:34> Assessment And Plan - Plan Physical exam: general: alert and oriented x3, cooperative HEENT: clear conjunctiva, EOMI pulm: increased work of breathing cv: regular rate abd: no tenderness, non-distended msk: no swelling neuro: speaking normally Assessment: Acute hypoxic respiratory failure secondary to COVID-19 pneumoniafailed outpatient therapy with home oxygen Nonalcoholic cirrhosis of the liver secondary to fatty liver disease Plan: Acute hypoxic respiratory failure secondary to COVID-19 pneumoniafailed outpatient therapy with home oxygen: Continue with IV steroids, oral supplements, supplemental oxygen as needed, pulmonology consult, ivermectin, baricitinib. Full dose anticoagulation with Xarelto. Patient with significantly increased oxygen requirement. Nonalcoholic cirrhosis of the liver secondary to fatty liver disease: Stable, monitor daily labs. 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 Plan of care discussed and agree as noted above. <Frederick Rodas - Last Filed: 01/18/21 21:22>
[2021-01-18 07:21] VITALS: BMI 43.4
[2021-01-18] MEDS: IVERMECTIN 3 MG TABLET PO SCH (08:00)
[2021-01-18] MEDS ORDERED: METHYLPREDNISOLONE 125 MG INJ ONE ×2 (08:17→21:11)
[2021-01-18] MEDS ORDERED: ASCORBIC ACID 500 MG TABLET ONE ×3 (08:17→21:11)
[2021-01-18] MEDS ORDERED: THIAMINE HCL 100 MG TABLET ONE (08:17)
[2021-01-18] MEDS ORDERED: VITAMIN D 1000 UNIT TAB ONE (08:18)
[2021-01-18] MEDS: THIAMINE HCL 100 MG TABLET PO SCH (09:00)
[2021-01-18] MEDS: VITAMIN D 1000 UNIT TAB PO SCH (09:00)
[2021-01-18] MEDS: ZINC SULFATE 220 MG CAP PO SCH (09:00)
[2021-01-18] MEDS: ASCORBIC ACID 500 MG TABLET PO SCH ×4 (09:00→21:02)
[2021-01-18] MEDS: METHYLPREDNISOLONE 40 MG INJ IV SCH ×2 (09:00→14:00)
[2021-01-18 09:01] LABS: Blood Morphology Comment NOT SEEN (NOT SEEN); Platelet Estimate ADEQ; Platelets, Giant FEW
[2021-01-18 09:47] LABS: Urine Appearance CLEAR (Clear); Urine Bilirubin NEGATIVE (Negative); Urine Blood NEGATIVE (Negative); Urine Color YELLOW (Yellow); Urine Glucose TRACE (Negative); Urine Protein 1+ (Negative); Urine Specific Gravity >=1.030 (1.005-1.030)
[2021-01-18 09:49] LABS: Urine Microscopic Reflex ORDER UMIC
[2021-01-18 10:05] LABS: Urine Bacteria <20 /HPF (NONE SEEN); Urine RBC NONE SEEN /HPF (NONE SEEN)
--- NOTE | 2021-01-18 10:57 | RAD REPORT ---
EXAM DESCRIPTION: CT - Chest For Pe Angio - 01/18/2021 6:51 am COMPARISON: CT PE January 14, 2021 CLINICAL HISTORY: [facility] MAIN Chest pain;SOB TECHNIQUE: CT images through the chest with IV contrast using the pulmonary embolus protocol. Multip lanar reformats. Automated exposure control was utilized on this examination as a dose lowering techn ique. FINDINGS: Pulmonary arteries and vascular: Diagnostic quality bolus. Motion artifact in the lung bas es. No filling defects. Heart and mediastinum: Heart size is normal. No lymphadenopathy. Thyroid gland: Visualized portions are normal. Lungs: Multifocal bilateral consolidations are present. Airways: No filling defects. No bronchiectasis. Pleura: No pneumothorax. No significant pleural effusion. Subphrenic structures: Within normal limits. Musculoskeletal and soft tissues: Within normal limits for age. IMPRESSION: 1. No evidence of proximal pulmonary embolus. Evaluation for branch emboli is limited du e to motion artifact. 2. Multifocal pneumonia. Commonly reported imaging features of COVID-19 pneumonia are present. Other processes such as influenza pneumonia and organizing pneumonia, as can be seen with drug toxicity and connective tissue disease, can cause similar imaging pattern. Electronically signed by: David Ivy MD 01/18/2021 12:06 AM CDT Due to temporary technical issues with the PACS/Fluency reporting system, reports are being signed by the in house radiologist without review as a courtesy to ensure prompt reporting. The interpreting r adiologist is fully responsible for the content of the report.
[2021-01-18] MEDS ORDERED: METHYLPREDNISOLONE 40 MG INJ ONE (11:11)
[2021-01-18] MEDS: RIVAROXABAN 20 MG TABLET PO SCH (17:00)
[2021-01-18] MEDS: METHYLPREDNISOLONE 125 MG INJ IV SCH (21:02)
[2021-01-19] MEDS: BENZONATATE 100 MG CAP PO PRN ×2 (04:19→15:39)
[2021-01-19] MEDS ORDERED: BENZONATATE 100 MG CAP PO ONE ×3 (04:39→20:51)
[2021-01-19 05:11] LABS: Absolute Lymphocytes (CBC) 0.6 K/uL (0.7-4.9); Basophils % 0.2 % (0-1.3); Hematocrit 45.5 % (39.6-49.0); Lymphocytes % 4.9 % (15.3-44.8); MPV 7.8 fL (7.6-11.3); RBC Red Blood Cell Count 4.65 M/uL (4.33-5.43)
[2021-01-19 05:43] LABS: ALT/SGPT 40 U/L (12-78); AST/SGOT 59 U/L (15-37); Albumin 2.7 g/dL (3.4-5.0); Alkaline Phosphatase 69 U/L (45-117); BUN Blood Urea Nitrogen 18 mg/dL (7-18); Bicarbonate 30 mmol/L (21-32); Bilirubin Total 0.6 mg/dL (0.2-1.0); Ferritin 2568.2 ng/mL (26-388); Glucose Level 207 mg/dL (74-106); Protein, Total 6.3 g/dL (6.4-8.2); Sodium Level 140 mmol/L (136-145)
[2021-01-19] MEDS ORDERED: VITAMIN D 1000 UNIT TAB ONE (08:09)
[2021-01-19] MEDS ORDERED: THIAMINE HCL 100 MG TABLET ONE (08:09)
[2021-01-19] MEDS ORDERED: ZINC SULFATE 220 MG CAP ONE (08:09)
[2021-01-19] MEDS ORDERED: ASCORBIC ACID 500 MG TABLET ONE ×2 (08:09→20:51)
[2021-01-19] MEDS ORDERED: METHYLPREDNISOLONE 125 MG INJ ONE (08:10)
[2021-01-19] MEDS: ASCORBIC ACID 500 MG TABLET PO SCH ×4 (09:00→21:00)
[2021-01-19] MEDS: METHYLPREDNISOLONE 125 MG INJ IV SCH ×3 (09:00→21:00)
[2021-01-19] MEDS: ZINC SULFATE 220 MG CAP PO SCH (09:00)
[2021-01-19] MEDS: THIAMINE HCL 100 MG TABLET PO SCH (09:00)
[2021-01-19] MEDS: VITAMIN D 1000 UNIT TAB PO SCH (09:00)
[2021-01-19] MEDS ORDERED: METHYLPREDNISOLONE 40 MG INJ ONE ×2 (11:05→20:52)
[2021-01-19] MEDS: ALPRAZOLAM 0.25 MG TABLET PO PRN (15:48)
[2021-01-19] MEDS: RIVAROXABAN 20 MG TABLET PO SCH (17:00)
--- NOTE | 2021-01-19 18:40 | P.PN ---
Subjective Date of Service: 01/19/21 Chief Complaint: Hypoxia, Covid-19 pneumonia Patient clinical condition got worse over the past 2 days. He is now requiring BiPAP. Physical Examination - Vital Signs Temperature: 97.3 F Blood Pressure: 124/71 Pulse: 61 Respirations: 28 Pulse Ox (%): 95 - Physical Exam General: In no apparent distress HEENT: Other (BiPAP) Neck: JVD not distended Respiratory: Other (Nonlabored breathing) Cardiovascular: Regular rate/rhythm, Normal S1 S2 Gastrointestinal: Soft and benign, Non-distended Musculoskeletal: No swelling Integumentary: No rashes Neurological: Normal strength at 5/5 x4 extr Assessment And Plan Physician Review Additional Text: Assessment: Acute hypoxic respiratory failure secondary to COVID-19 pneumoniafailed outpatient therapy with home oxygen Nonalcoholic cirrhosis of the liver secondary to fatty liver disease Plan: Acute hypoxic respiratory failure with hypoxia/COVID-19 pneumonia: Continue with IV steroids, oral supplements, supplemental oxygen as needed, pulmonology consulted. On Ivermectin Dr. Sheffield to see him. Baricitinib per Dr. Serrato. Full dose anticoagulation with Xarelto. Nonalcoholic cirrhosis of the liver secondary to fatty liver disease: Stable, monitor LFT DVT PPX:Xarelto Code status: Full
[2021-01-19] MEDS ORDERED: D50W 25 GM/50 ML SYRINGE IV PRN (18:41)
[2021-01-19] MEDS ORDERED: GLUCAGON 1 MG/VIAL IM PRN (18:41)
[2021-01-19] MEDS ORDERED: ALPRAZOLAM 0.5 MG TABLET ONE (20:52)
[2021-01-19] MEDS ORDERED: MELATONIN 5 MG TABLET PO ONE (20:52)
[2021-01-19] MEDS: INSULIN -REGULAR HUMAN 50 UNIT/0.5 ML ML SQ SCH (21:00)
[2021-01-20] MEDS: ALPRAZOLAM 0.25 MG TABLET PO PRN (03:54)
[2021-01-20] MEDS ORDERED: ALPRAZOLAM 0.5 MG TABLET PO ONE (03:56)
[2021-01-20] MEDS ORDERED: ALPRAZOLAM 0.25 MG TABLET ONE (04:10)
[2021-01-20 06:18] LABS: Absolute Lymphocytes (CBC) 0.7 K/uL (0.7-4.9); Basophils % 0.3 % (0-1.3); Hematocrit 45.2 % (39.6-49.0); MPV 7.5 fL (7.6-11.3)
[2021-01-20 06:35] LABS: ALT/SGPT 43 U/L (12-78); AST/SGOT 51 U/L (15-37); Albumin 2.7 g/dL (3.4-5.0); Alkaline Phosphatase 89 U/L (45-117); BUN Blood Urea Nitrogen 22 mg/dL (7-18); Bicarbonate 29 mmol/L (21-32); Bilirubin Total 0.6 mg/dL (0.2-1.0); Ferritin 1649.4 ng/mL (26-388); Glucose Level 189 mg/dL (74-106); Potassium 4.4 mmol/L (3.5-5.1); Protein, Total 6.2 g/dL (6.4-8.2); Sodium Level 139 mmol/L (136-145)
[2021-01-20] MEDS ORDERED: THIAMINE HCL 100 MG TABLET ONE (07:58)
[2021-01-20] MEDS ORDERED: ASCORBIC ACID 500 MG TABLET ONE (07:58)
[2021-01-20] MEDS ORDERED: VITAMIN D 1000 UNIT TAB ONE (07:58)
[2021-01-20] MEDS ORDERED: ZINC SULFATE 220 MG CAP ONE (07:58)
[2021-01-20] MEDS ORDERED: METHYLPREDNISOLONE 40 MG INJ ONE ×2 (07:59→13:01)
[2021-01-20] MEDS: INSULIN -REGULAR HUMAN 50 UNIT/0.5 ML ML SQ SCH ×4 (08:00→20:30)
[2021-01-20] MEDS: IVERMECTIN 3 MG TABLET PO SCH (08:00)
[2021-01-20] MEDS: ZINC SULFATE 220 MG CAP PO SCH (08:01)
[2021-01-20] MEDS: VITAMIN D 1000 UNIT TAB PO SCH (08:01)
[2021-01-20] MEDS: THIAMINE HCL 100 MG TABLET PO SCH (08:01)
[2021-01-20] MEDS: METHYLPREDNISOLONE 125 MG INJ IV SCH ×3 (08:01→20:29)
[2021-01-20] MEDS: ASCORBIC ACID 500 MG TABLET PO SCH ×4 (08:01→20:30)
[2021-01-20] MEDS ORDERED: INSULIN -REGULAR HUMAN 50 UNIT/0.5 ML ML ONE ×2 (08:46→13:17)
[2021-01-20] MEDS: ALPRAZOLAM 0.5 MG TABLET PO PRN (12:52)
[2021-01-20] MEDS ORDERED: ALPRAZOLAM 0.5 MG TABLET ONE (13:01)
[2021-01-20] MEDS: RIVAROXABAN 20 MG TABLET PO SCH (17:00)
--- NOTE | 2021-01-20 17:57 | P.PN ---
Subjective Date of Service: 01/20/21 Chief Complaint: Hypoxia, Covid-19 pneumonia Patient currently on high-flow oxygen Physical Examination - Vital Signs Temperature: 98.3 F Blood Pressure: 137/86 Pulse: 97 Respirations: 28 Pulse Ox (%): 87 - Physical Exam General: In no apparent distress Neck: JVD not distended Respiratory: Other (Nonlabored breathing) Cardiovascular: Regular rate/rhythm, Normal S1 S2 Gastrointestinal: Soft and benign, Non-distended Musculoskeletal: No swelling Integumentary: No rashes Neurological: Normal strength at 5/5 x4 extr Assessment And Plan Physician Review Additional Text: Assessment: Acute hypoxic respiratory failure secondary to COVID-19 pneumoniafailed outpatient therapy with home oxygen Nonalcoholic cirrhosis of the liver secondary to fatty liver disease Plan: Acute hypoxic respiratory failure with hypoxia/COVID-19 pneumonia: Continue with IV steroids, oral supplements, supplemental oxygen as needed, pulmonology is following. Monitor inflammatory markers. Baricitinib per Dr. Serrato. High risk for thromboembolism. Continue Xarelto. Wean oxygen as tolerated. Nonalcoholic cirrhosis of the liver secondary to fatty liver disease: Stable. DVT PPX:Xarelto Code status: Full
[2021-01-21 06:48] LABS: Hematocrit 44.8 % (39.6-49.0); RBC Red Blood Cell Count 4.61 M/uL (4.33-5.43)
[2021-01-21 06:49] LABS: Absolute Lymphocytes (CBC) 0.6 K/uL (0.7-4.9); Basophils % 0.1 % (0-1.3); Lymphocytes % 4.4 % (15.3-44.8); MPV 7.8 fL (7.6-11.3)
[2021-01-21 07:01] LABS: Albumin 2.5 g/dL (3.4-5.0); Bilirubin Direct 0.2 mg/dL (0-0.2); Bilirubin Total 0.8 mg/dL (0.2-1.0); Protein, Total 6.1 g/dL (6.4-8.2)
[2021-01-21 07:10] LABS: BUN Blood Urea Nitrogen 22 mg/dL (7-18); Bicarbonate 33 mmol/L (21-32); Ferritin 1195.9 ng/mL (26-388); Glucose Level 180 mg/dL (74-106); Potassium 4.4 mmol/L (3.5-5.1); Sodium Level 140 mmol/L (136-145)
[2021-01-21] MEDS: METHYLPREDNISOLONE 125 MG INJ IV SCH ×3 (09:02→21:05)
[2021-01-21] MEDS: ZINC SULFATE 220 MG CAP PO SCH (09:04)
[2021-01-21] MEDS: THIAMINE HCL 100 MG TABLET PO SCH (09:04)
[2021-01-21] MEDS: INSULIN -REGULAR HUMAN 50 UNIT/0.5 ML ML SQ SCH ×4 (09:04→21:05)
[2021-01-21] MEDS: ASCORBIC ACID 500 MG TABLET PO SCH ×4 (09:05→21:04)
[2021-01-21] MEDS: VITAMIN D 1000 UNIT TAB PO SCH (11:07)
--- NOTE | 2021-01-21 11:55 | P.PN ---
Subjective Date of Service: 01/21/21 Chief Complaint: Hypoxia, Covid-19 pneumonia states he is breathing better. denies any n/v/d. on BiPAP Review of Systems 10-point ROS is otherwise unremarkable Physical Examination - Vital Signs Temperature: 98.6 F Blood Pressure: 131/79 Pulse: 92 Respirations: 35 Pulse Ox (%): 92 Assessment And Plan - Plan Physical exam: general: alert and oriented x3, cooperative HEENT: clear conjunctiva, EOMI pulm: increased work of breathing, on BIPAP cv: regular rate abd: no tenderness, non-distended msk: no swelling neuro: speaking normally Assessment: Acute hypoxic respiratory failure secondary to COVID-19 pneumoniafailed outpatient therapy with home oxygen Nonalcoholic cirrhosis of the liver secondary to fatty liver disease Plan: Acute hypoxic respiratory failure with hypoxia/COVID-19 pneumonia: Continue with IV steroids, oral supplements, supplemental oxygen as needed Pulmonology is following. Awaiting recs Monitor inflammatory markers. Consider starting baricitinib Wean oxygen as tolerated. High risk for thromboembolism. Continue Xarelto. Nonalcoholic cirrhosis of the liver secondary to fatty liver disease: Stable. 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
[2021-01-21] MEDS: ASPIRIN EC 81 MG TAB PO SCH (13:27)
[2021-01-21] MEDS: RIVAROXABAN 20 MG TABLET PO SCH (16:21)
[2021-01-21] MEDS ORDERED: BARICITINIB 2 MG TABLET PO ONE (20:00)
[2021-01-22 04:17] LABS: Absolute Lymphocytes (CBC) 0.6 K/uL (0.7-4.9); Hematocrit 42.9 % (39.6-49.0); Lymphocytes % 5.5 % (15.3-44.8); MPV 8.4 fL (7.6-11.3); RBC Red Blood Cell Count 4.38 M/uL (4.33-5.43)
[2021-01-22] MEDS: ACETAMINOPHEN 500 MG TAB PO PRN (04:24)
[2021-01-22 04:26] LABS: ALT/SGPT 35 U/L (12-78); AST/SGOT 28 U/L (15-37); Albumin 2.3 g/dL (3.4-5.0); Alkaline Phosphatase 82 U/L (45-117); BUN Blood Urea Nitrogen 21 mg/dL (7-18); Bicarbonate 33 mmol/L (21-32); Bilirubin Direct 0.3 mg/dL (0-0.2); Bilirubin Total 0.9 mg/dL (0.2-1.0); Glucose Level 204 mg/dL (74-106); Potassium 4.7 mmol/L (3.5-5.1); Protein, Total 5.8 g/dL (6.4-8.2); Sodium Level 141 mmol/L (136-145)
[2021-01-22 04:29] LABS: C-Reactive Protein 84.9 mg/L (<3.00); Ferritin 1310.3 ng/mL (26-388)
[2021-01-22] MEDS: ASCORBIC ACID 500 MG TABLET PO SCH ×4 (09:41→21:17)
[2021-01-22] MEDS: VITAMIN D 1000 UNIT TAB PO SCH (09:41)
[2021-01-22] MEDS: INSULIN -REGULAR HUMAN 50 UNIT/0.5 ML ML SQ SCH ×4 (09:42→21:18)
[2021-01-22] MEDS: METHYLPREDNISOLONE 125 MG INJ IV SCH ×3 (09:42→21:17)
[2021-01-22] MEDS: THIAMINE HCL 100 MG TABLET PO SCH (09:42)
[2021-01-22] MEDS: ASPIRIN EC 81 MG TAB PO SCH (09:54)
[2021-01-22] MEDS: ZINC SULFATE 220 MG CAP PO SCH (09:54)
[2021-01-22] MEDS: BARICITINIB 2 MG TABLET PO SCH (09:54)
--- NOTE | 2021-01-22 13:10 | P.PN ---
Subjective Date of Service: 01/22/21 Chief Complaint: Hypoxia, Covid-19 pneumonia Patient appeared comfortable on CPAP, FiO2 90%. Physical Examination - Vital Signs Temperature: 98.1 F Blood Pressure: 129/69 Pulse: 88 Respirations: 34 Pulse Ox (%): 95 - Physical Exam General: In no apparent distress, Oriented x3 Neck: JVD not distended Respiratory: Other (Nonlabored breathing) Cardiovascular: Regular rate/rhythm, Normal S1 S2 Gastrointestinal: Soft and benign, Non-distended Musculoskeletal: No swelling Integumentary: No rashes Neurological: Normal strength at 5/5 x4 extr Assessment And Plan Physician Review Additional Text: Assessment: Acute hypoxic respiratory failure secondary to COVID-19 pneumoniafailed outpatient therapy with home oxygen Nonalcoholic cirrhosis of the liver secondary to fatty liver disease Plan: Acute hypoxic respiratory failure with hypoxia/COVID-19 pneumonia: Continue with IV steroids, oral supplements, on CPAP and supplemental oxygen. pulmonology is following. Monitor inflammatory markers. Patient started on Baracitinib High risk for thromboembolism. Continue Xarelto. Wean oxygen as tolerated. Nonalcoholic cirrhosis of the liver secondary to fatty liver disease: Stable. DVT PPX:Xarelto Code status: Full
[2021-01-22] MEDS ORDERED: ENSURE HIGH PROTEIN 237 ML CAN PO PRN (16:17)
[2021-01-22] MEDS: RIVAROXABAN 20 MG TABLET PO SCH (17:09)
[2021-01-22] MEDS: BENZONATATE 100 MG CAP PO PRN (21:19)
--- NOTE | 2021-01-22 21:34 | P.PN ---
Subjective Date of Service: 01/22/21 Chief Complaint: Hypoxia, Covid-19 pneumonia stabel/ on BIPAP and high level of O2 Review of Systems General: Weakness Respiratory: Shortness of Breath Physical Examination - Vital Signs Temperature: 97.7 F Blood Pressure: 134/75 Pulse: 75 Respirations: 22 Pulse Ox (%): 94 - Physical Exam General: Alert, Oriented x3, Cooperative Assessment & Plan - Problems (Diagnosis) (1) Pneumonia due to COVID-19 virus Current Visit: No Status: Acute Plan: Still on high level of O2/ Titrate O2 sat of 90% and Check ABG. CXRY am/ on Barctinib and steroids
[2021-01-23 01:57] LABS: Arterial Blood Carboxyhemoglob 0.7 % (0-1.5); Blood Gas Oxyhemoglobin 81.9 % (94-97); Blood O2 Saturation 83.4 % (92-98.5)
[2021-01-23] MEDS: ACETAMINOPHEN 500 MG TAB PO PRN (06:29)
[2021-01-23 06:43] LABS: Absolute Lymphocytes (CBC) 0.7 K/uL (0.7-4.9); Basophils % 0.3 % (0-1.3); Hematocrit 45.5 % (39.6-49.0); Lymphocytes % 4.3 % (15.3-44.8); MPV 8.3 fL (7.6-11.3); RBC Red Blood Cell Count 4.65 M/uL (4.33-5.43)
[2021-01-23 07:14] LABS: BUN Blood Urea Nitrogen 27 mg/dL (7-18); Bicarbonate 34 mmol/L (21-32); Ferritin 1412.4 ng/mL (26-388); Glucose Level 197 mg/dL (74-106); Potassium 4.5 mmol/L (3.5-5.1); Sodium Level 140 mmol/L (136-145)
[2021-01-23 07:42] LABS: Blood Morphology Comment NOT SEEN (NOT SEEN); Platelet Estimate DECR; White Blood Cell Scan OK (OK)
--- NOTE | 2021-01-23 08:25 | RAD REPORT ---
EXAM DESCRIPTION: RAD - Chest Single View - 01/23/2021 5:39 am CLINICAL HISTORY: penumonia, COVID-19 COMPARISON: CT chest January 17, portable chest January 17 TECHNIQUE: AP portable chest image was obtained 01/23/2021 5:39 am . FINDINGS: Bilateral COVID-19 pneumonia findings remain. Pattern is not substantially different from prior imaging. Heart and vasculature are normal. No measurable pleural effusion and no pneumothorax. No acute bony abnormality seen. No acute aortic findings suspected. IMPRESSION: No substantial change to the bilateral COVID-19 pneumonia findings compared with January 17.
[2021-01-23] MEDS ORDERED: HYDROCORTISONE ACETATE 25MG SUPP PR ONE ×2 (08:35→16:30)
[2021-01-23] MEDS: INSULIN -REGULAR HUMAN 50 UNIT/0.5 ML ML SQ SCH ×4 (09:31→20:53)
[2021-01-23] MEDS: ASPIRIN EC 81 MG TAB PO SCH (09:32)
[2021-01-23] MEDS: METHYLPREDNISOLONE 125 MG INJ IV SCH ×3 (09:32→20:53)
[2021-01-23] MEDS: BARICITINIB 2 MG TABLET PO SCH (09:32)
[2021-01-23] MEDS: THIAMINE HCL 100 MG TABLET PO SCH (09:33)
[2021-01-23] MEDS: ASCORBIC ACID 500 MG TABLET PO SCH ×4 (09:33→20:53)
[2021-01-23] MEDS: VITAMIN D 1000 UNIT TAB PO SCH (09:33)
[2021-01-23] MEDS: ZINC SULFATE 220 MG CAP PO SCH (09:33)
[2021-01-23] MEDS ORDERED: GLUCAGON 1 MG/VIAL IM PRN (12:28)
[2021-01-23] MEDS ORDERED: D50W 25 GM/50 ML SYRINGE IV PRN (12:28)
--- NOTE | 2021-01-23 12:29 | P.PN ---
Subjective Date of Service: 01/23/21 Chief Complaint: Hypoxia, Covid-19 pneumonia Patient complaining of pain in the perineum with coughing. I suspect the pain is secondary to hemorrhoid. Physical Examination - Vital Signs Temperature: 98.7 F Blood Pressure: 128/70 Pulse: 77 Respirations: 28 Pulse Ox (%): 89 - Physical Exam General: Alert, In no apparent distress HEENT: Other (BiPAP) Respiratory: Other (Nonlabored breathing) Cardiovascular: Regular rate/rhythm, Normal S1 S2 Gastrointestinal: Soft and benign, Non-distended Musculoskeletal: No swelling Integumentary: No rashes Neurological: Normal strength at 5/5 x4 extr Assessment And Plan Physician Review Additional Text: Assessment: Acute hypoxic respiratory failure secondary to COVID-19 pneumoniafailed outpatient therapy with home oxygen Nonalcoholic cirrhosis of the liver secondary to fatty liver disease Perineal pain Plan: Acute hypoxic respiratory failure with hypoxia/COVID-19 pneumonia: Continue with IV steroids, oral supplements, on CPAP and supplemental oxygen. pulmonology is following. Monitor inflammatory markers. Continue Baracitinib High risk for thromboembolism. Continue Xarelto. Wean oxygen as tolerated. Hydrocortisone suppository for possible hemorrhoidal pain. Nonalcoholic cirrhosis of the liver secondary to fatty liver disease: Stable. Hyperglycemia Likely steroid induced. Continue insulin sliding scale. Lantus insulin added. Hemoglobin A1c is 6.8-borderline diabetes. DVT PPX:Xarelto Code status: Full
[2021-01-23] MEDS: INSULIN GLARGINE 100 UNITS/ML SQ SCH (13:52)
[2021-01-23] MEDS: RIVAROXABAN 20 MG TABLET PO SCH (17:06)
[2021-01-23] MEDS: BENZONATATE 100 MG CAP PO PRN (20:53)
[2021-01-23] MEDS: MELATONIN 5 MG TABLET PO PRN (21:01)
[2021-01-24 04:23] LABS: C-Reactive Protein 21.4 mg/L (<3.00); Ferritin 1207.1 ng/mL (26-388)
[2021-01-24] MEDS: INSULIN -REGULAR HUMAN 50 UNIT/0.5 ML ML SQ SCH ×4 (08:51→20:15)
[2021-01-24] MEDS: INSULIN GLARGINE 100 UNITS/ML SQ SCH (08:51)
[2021-01-24] MEDS: ZINC SULFATE 220 MG CAP PO SCH (08:52)
[2021-01-24] MEDS: ASPIRIN EC 81 MG TAB PO SCH (08:53)
[2021-01-24] MEDS: VITAMIN D 1000 UNIT TAB PO SCH (08:53)
[2021-01-24] MEDS: BARICITINIB 2 MG TABLET PO SCH (08:53)
[2021-01-24] MEDS: METHYLPREDNISOLONE 125 MG INJ IV SCH (08:54)
[2021-01-24] MEDS: BENZONATATE 100 MG CAP PO PRN ×2 (08:54→20:15)
[2021-01-24] MEDS: THIAMINE HCL 100 MG TABLET PO SCH (08:54)
[2021-01-24] MEDS: ASCORBIC ACID 500 MG TABLET PO SCH ×4 (08:54→20:15)
--- NOTE | 2021-01-24 12:27 | P.PN ---
Subjective Date of Service: 01/24/21 Chief Complaint: Hypoxia, Covid-19 pneumonia Still on high Concentration of Fio2 Review of Systems General: Weakness Respiratory: Shortness of Breath Physical Examination - Vital Signs Temperature: 97.7 F Blood Pressure: 126/64 Pulse: 81 Respirations: 28 Pulse Ox (%): 90 - Physical Exam General: Alert, In no apparent distress, Oriented x3, Cooperative Assessment & Plan - Problems (Diagnosis) (1) Pneumonia due to COVID-19 virus Current Visit: No Status: Acute Plan: Resp failure/ reduce steroids/ Add Diflucan for fungal prophylaxis/ Labs rev/on 85% Fio2. CW weaning
[2021-01-24] MEDS: FLUCONAZOLE 100 MG TAB PO SCH (12:55)
[2021-01-24] MEDS: METHYLPREDNISOLONE 40 MG INJ IV SCH ×2 (13:16→20:15)
--- NOTE | 2021-01-24 13:33 | P.PN ---
Subjective Date of Service: 01/24/21 Chief Complaint: Hypoxia, Covid-19 pneumonia Patient remain on BiPAP with high FiO2. Physical Examination - Vital Signs Temperature: 97.7 F Blood Pressure: 126/64 Pulse: 81 Respirations: 28 Pulse Ox (%): 90 - Physical Exam General: Alert, In no apparent distress, Oriented x3 HEENT: Other (BiPAP) Neck: JVD not distended Respiratory: Other (No labored breathing) Cardiovascular: No edema, Regular rate/rhythm, Normal S1 S2 Gastrointestinal: Soft and benign, Non-distended Musculoskeletal: No swelling Integumentary: No rashes Neurological: Normal strength at 5/5 x4 extr Assessment And Plan Physician Review Additional Text: Assessment: Acute hypoxic respiratory failure secondary to COVID-19 pneumoniafailed outpatient therapy with home oxygen Nonalcoholic cirrhosis of the liver secondary to fatty liver disease Perineal pain Plan: Acute hypoxic respiratory failure with hypoxia/COVID-19 pneumonia: Continue with IV steroids, oral supplements, on CPAP and supplemental oxygen. pulmonology is following. Monitor inflammatory markers. Continue Baracitinib High risk for thromboembolism. Continue Xarelto. Wean oxygen as tolerated. Nonalcoholic cirrhosis of the liver secondary to fatty liver disease: Stable. Hyperglycemia Likely steroid induced. Continue insulin sliding scale. Lantus insulin added. Hemoglobin A1c is 6.8-borderline diabetes. DVT PPX:Xarelto Code status: Full
[2021-01-24] MEDS: RIVAROXABAN 20 MG TABLET PO SCH (16:09)
[2021-01-25 04:46] LABS: Potassium 5.6 mmol/L (3.5-5.1)
[2021-01-25] MEDS ORDERED: INSULIN -REGULAR HUMAN 50 UNIT/0.5 ML ML IV ONE (04:52)
[2021-01-25 04:55] LABS: Absolute Lymphocytes (CBC) 0.4 K/uL (0.7-4.9); Basophils % 0.2 % (0-1.3); Lymphocytes % 2.5 % (15.3-44.8); RBC Red Blood Cell Count 4.78 M/uL (4.33-5.43)
[2021-01-25] MEDS: INSULIN -REGULAR HUMAN 50 UNIT/0.5 ML ML SQ SCH ×4 (08:06→20:58)
[2021-01-25] MEDS: ASPIRIN EC 81 MG TAB PO SCH (08:07)
[2021-01-25] MEDS: FLUCONAZOLE 100 MG TAB PO SCH (08:07)
[2021-01-25] MEDS: BARICITINIB 2 MG TABLET PO SCH (08:07)
[2021-01-25] MEDS: INSULIN GLARGINE 100 UNITS/ML SQ SCH (08:07)
[2021-01-25] MEDS: VITAMIN D 1000 UNIT TAB PO SCH (08:07)
[2021-01-25] MEDS: THIAMINE HCL 100 MG TABLET PO SCH (08:08)
[2021-01-25] MEDS: ASCORBIC ACID 500 MG TABLET PO SCH ×4 (08:08→20:58)
[2021-01-25] MEDS: ZINC SULFATE 220 MG CAP PO SCH (08:08)
[2021-01-25] MEDS: METHYLPREDNISOLONE 40 MG INJ IV SCH ×3 (08:08→20:58)
[2021-01-25] MEDS: RIVAROXABAN 20 MG TABLET PO SCH (16:24)
[2021-01-25] MEDS: HYDROCORTISONE ACETATE 25MG SUPP PR PRN (16:24)
--- NOTE | 2021-01-25 16:53 | P.PN ---
Subjective Date of Service: 01/25/21 Chief Complaint: Hypoxia, Covid-19 pneumonia Patient tolerating oxygen by 15L nasal cannula today. He is complaining of persistent pain in the perineum with coughing. Physical Examination - Vital Signs Temperature: 98.1 F Blood Pressure: 131/60 Pulse: 88 Respirations: 18 Pulse Ox (%): 87 - Physical Exam General: Alert, In no apparent distress, Oriented x3 Neck: JVD not distended Respiratory: Other (Nonlabored breathing) Cardiovascular: Regular rate/rhythm, Normal S1 S2 Gastrointestinal: Soft and benign, Non-distended, No tenderness Musculoskeletal: No swelling Integumentary: No rashes, No erythema Neurological: Normal strength at 5/5 x4 extr Assessment And Plan Physician Review Additional Text: Assessment: Acute hypoxic respiratory failure secondary to COVID-19 pneumoniafailed outpatient therapy with home oxygen Nonalcoholic cirrhosis of the liver secondary to fatty liver disease Perineal pain Hyperkalemia Plan: Acute hypoxic respiratory failure with hypoxia/COVID-19 pneumonia: Continue with IV steroids, oral supplements. He is not tolerating oxygen by nasal cannula. pulmonology is following. Monitor inflammatory markers. Continue Baracitinib High risk for thromboembolism. Continue Xarelto. Wean oxygen as tolerated. Nonalcoholic cirrhosis of the liver secondary to fatty liver disease: Stable. Hyperglycemia Likely steroid induced. Continue insulin sliding scale. Lantus insulin added. Titrate Lantus insulin. Hemoglobin A1c is 6.8-borderline diabetes. Monitor BMP. DVT PPX:Xarelto Code status: Full
[2021-01-25] MEDS: MELATONIN 5 MG TABLET PO PRN (20:58)
[2021-01-26 03:59] LABS: BUN Blood Urea Nitrogen 23 mg/dL (7-18); Bicarbonate 33 mmol/L (21-32); Ferritin 1378.7 ng/mL (26-388); Glucose Level 188 mg/dL (74-106); Sodium Level 139 mmol/L (136-145)
[2021-01-26 04:00] LABS: Absolute Lymphocytes (CBC) 0.4 K/uL (0.7-4.9); Basophils % 0.1 % (0-1.3); Hematocrit 47.2 % (39.6-49.0); MPV 8.7 fL (7.6-11.3); RBC Red Blood Cell Count 4.83 M/uL (4.33-5.43)
[2021-01-26] MEDS: INSULIN -REGULAR HUMAN 50 UNIT/0.5 ML ML SQ SCH ×4 (10:06→21:00)
[2021-01-26] MEDS: INSULIN GLARGINE 100 UNITS/ML SQ SCH (10:07)
[2021-01-26] MEDS: FLUCONAZOLE 100 MG TAB PO SCH (10:07)
[2021-01-26] MEDS: VITAMIN D 1000 UNIT TAB PO SCH (10:07)
[2021-01-26] MEDS: ASPIRIN EC 81 MG TAB PO SCH (10:07)
[2021-01-26] MEDS: ZINC SULFATE 220 MG CAP PO SCH (10:08)
[2021-01-26] MEDS: THIAMINE HCL 100 MG TABLET PO SCH (10:08)
[2021-01-26] MEDS: METHYLPREDNISOLONE 40 MG INJ IV SCH ×3 (10:08→21:05)
[2021-01-26] MEDS: BARICITINIB 2 MG TABLET PO SCH (10:08)
[2021-01-26] MEDS: ASCORBIC ACID 500 MG TABLET PO SCH ×4 (10:08→21:05)
[2021-01-26] MEDS: HYDROCORTISONE ACETATE 25MG SUPP PR PRN (10:08)
[2021-01-26] MEDS ORDERED: FLUTICASONE 50MCG NASAL SPRAY NAS PRN (13:35)
--- NOTE | 2021-01-26 13:37 | P.PN ---
Subjective Date of Service: 01/26/21 Chief Complaint: Hypoxia, Covid-19 pneumonia Subjective: No new changes (feels slightly improved, still hypoxic with minimal movement, very fatigued. but appetite improved, eating improved) Review of Systems 10-point ROS is otherwise unremarkable Physical Examination - Vital Signs Temperature: 97.6 F Blood Pressure: 120/66 Pulse: 77 Respirations: 34 Pulse Ox (%): 92 Assessment & Plan Physician Review Additional Text: Physical Exam General: Alert, In no apparent distress, Oriented x3, sitting at bedside Respiratory: nonlabored respirations on HFNC Cardiovascular: Regular rate/rhythm, Normal S1 S2 Gastrointestinal: Soft and benign, Non-distended, No tenderness Musculoskeletal: No joint swelling Integumentary: No rashes, No erythema Assessment: Acute hypoxic respiratory failure secondary to COVID-19 pneumoniafailed outpatient therapy with home oxygen Nonalcoholic cirrhosis of the liver secondary to fatty liver disease Perineal pain Hyperkalemia Plan: Acute hypoxic respiratory failure with hypoxia/COVID-19 pneumonia: Continue with IV steroids, oral supplements. wean O2 as tolerated, still requiring HFNC pulmonology is following. Monitor inflammatory markers - improving Continue Baracitinib High risk for thromboembolism. Continue Xarelto. recheck inflammatory markers in AM Nonalcoholic cirrhosis of the liver secondary to fatty liver disease: Stable. Hyperglycemia Likely steroid induced. Continue insulin sliding scale. Lantus insulin added. Titrate Lantus insulin. Hemoglobin A1c is 6.8 -borderline diabetes. Monitor BMP. DVT PPX:Xarelto Code status: Stippler Spent Managing Pts Care (In Minutes): 35
[2021-01-26] MEDS ORDERED: D50W 25 GM/50 ML VIAL IV PRN (14:00)
[2021-01-26] MEDS: RIVAROXABAN 20 MG TABLET PO SCH (16:24)
[2021-01-26] MEDS: BENZONATATE 100 MG CAP PO PRN (21:05)
[2021-01-26] MEDS: ALPRAZOLAM 0.5 MG TABLET PO PRN (21:53)
[2021-01-27 04:25] LABS: Hematocrit 43.1 % (39.6-49.0); MPV 8.7 fL (7.6-11.3); RBC Red Blood Cell Count 4.42 M/uL (4.33-5.43)
[2021-01-27 05:02] LABS: BUN Blood Urea Nitrogen 22 mg/dL (7-18); Bicarbonate 32 mmol/L (21-32); Ferritin 1415.6 ng/mL (26-388); Glucose Level 171 mg/dL (74-106); Potassium 4.9 mmol/L (3.5-5.1); Sodium Level 139 mmol/L (136-145)
--- NOTE | 2021-01-27 06:23 | P.PN ---
Subjective Date of Service: 01/27/21 Chief Complaint: Hypoxia, Covid-19 pneumonia Subjective: No new changes (Is about the same, still requiring high levels of oxygen supplementation, hypoxic with minimal movement, good appetite, able to eat slowly) Review of Systems 10-point ROS is otherwise unremarkable Physical Examination - Vital Signs Temperature: 98.1 F Blood Pressure: 113/58 Pulse: 72 Respirations: 17 Pulse Ox (%): 86 Assessment & Plan Physician Review Additional Text: Physical Exam General: Alert, oriented x3 Respiratory: on HFNC, tachypneic Cardiovascular: Regular rate/rhythm, Normal S1 S2 Gastrointestinal: Soft and benign, Non-distended, No tenderness Musculoskeletal: No joint swelling Integumentary: No rashes, No erythema Assessment: Acute hypoxic respiratory failure secondary to COVID-19 pneumoniafailed outpatient therapy with home oxygen Nonalcoholic cirrhosis of the liver secondary to fatty liver disease Perineal pain Hyperkalemia Plan: Acute hypoxic respiratory failure with hypoxia/COVID-19 pneumonia: Continue with IV steroids, oral supplements. wean O2 as tolerated, still requiring HFNC pulmonology is following. Monitor inflammatory markers - improving Continue Baracitinib High risk for thromboembolism. Continue Xarelto. worsening leukocytosis, possibly steroid induced, will empirically cover with rocephin - started 01/27 diflucan started 01/24 Nonalcoholic cirrhosis of the liver secondary to fatty liver disease: Stable. Hyperglycemia Likely steroid induced. Continue insulin sliding scale. Lantus insulin added. Titrate Lantus insulin. Hemoglobin A1c is 6.8 -borderline diabetes. Monitor BMP. 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
--- NOTE | 2021-01-27 07:42 | RAD REPORT ---
EXAM DESCRIPTION: RAD - Chest Single View - 01/27/2021 5:06 am CLINICAL HISTORY: hypoxia, covid COMPARISON: Chest Single View dated 01/23/2021; Chest Single View dated 01/17/2021; Chest Single View d ated 01/14/2021; Chest For Pe Angio dated 01/17/2021 FINDINGS: Bilateral airspace disease with more confluent areas of the left lung that are similar to 01/23/2021 per the lung volumes have decreased, however per The heart size is within normal limits.No acute osseous abnormality. No significant pleural effusions or pneumothorax. IMPRESSION: Decreased lung volumes but otherwise similar appearance of widespread bilateral airspace disease consistent with multifocal pneumonia.
[2021-01-27] MEDS: VITAMIN D 1000 UNIT TAB PO SCH (08:26)
[2021-01-27] MEDS: FLUCONAZOLE 100 MG TAB PO SCH (08:26)
[2021-01-27] MEDS: ASPIRIN EC 81 MG TAB PO SCH (08:26)
[2021-01-27] MEDS: BARICITINIB 2 MG TABLET PO SCH (08:26)
[2021-01-27] MEDS: INSULIN GLARGINE 100 UNITS/ML SQ SCH (08:27)
[2021-01-27] MEDS: INSULIN -REGULAR HUMAN 50 UNIT/0.5 ML ML SQ SCH ×4 (08:27→19:48)
[2021-01-27] MEDS: THIAMINE HCL 100 MG TABLET PO SCH (08:27)
[2021-01-27] MEDS: ASCORBIC ACID 500 MG TABLET PO SCH ×4 (08:27→19:43)
[2021-01-27] MEDS: METHYLPREDNISOLONE 40 MG INJ IV SCH ×3 (08:27→19:43)
[2021-01-27] MEDS: ZINC SULFATE 220 MG CAP PO SCH (08:28)
[2021-01-27] MEDS: BENZONATATE 100 MG CAP PO PRN (08:35)
[2021-01-27] MEDS: CEFTRIAXONE/SWI 1gm 1 GM/10 ML SYR IV SCH (14:08)
--- NOTE | 2021-01-27 15:07 | P.PN ---
Subjective Date of Service: 01/27/21 Chief Complaint: Hypoxia, Covid-19 pneumonia NC req high conc of O2 Review of Systems General: Weakness Respiratory: Shortness of Breath Physical Examination - Vital Signs Temperature: 98.1 F Blood Pressure: 113/58 Pulse: 72 Respirations: 17 Pulse Ox (%): 86 Assessment & Plan - Problems (Diagnosis) (1) Pneumonia due to COVID-19 virus Current Visit: No Status: Acute Plan: Resp failure/ AB and steroids max Tx/ Borderline sats
[2021-01-27] MEDS: RIVAROXABAN 20 MG TABLET PO SCH (16:08)
[2021-01-27] MEDS: HYDROCORTISONE ACETATE 25MG SUPP PR PRN (16:41)
[2021-01-27] MEDS: clonazePAM 0.5 MG TAB PO PRN (19:42)
[2021-01-28 06:28] LABS: Absolute Lymphocytes (CBC) 0.9 K/uL (0.7-4.9); Basophils % 0.2 % (0-1.3); Hematocrit 47.2 % (39.6-49.0); Lymphocytes % 3.6 % (15.3-44.8); MPV 8.4 fL (7.6-11.3)
[2021-01-28 06:49] LABS: BUN Blood Urea Nitrogen 22 mg/dL (7-18); Bicarbonate 32 mmol/L (21-32); Ferritin 1851.7 ng/mL (26-388); Glucose Level 138 mg/dL (74-106); Potassium 4.5 mmol/L (3.5-5.1); Sodium Level 139 mmol/L (136-145)
[2021-01-28] MEDS: INSULIN -REGULAR HUMAN 50 UNIT/0.5 ML ML SQ SCH ×4 (07:07→20:43)
[2021-01-28] MEDS: METHYLPREDNISOLONE 40 MG INJ IV SCH ×3 (07:19→20:44)
[2021-01-28] MEDS: ZINC SULFATE 220 MG CAP PO SCH (07:20)
[2021-01-28] MEDS: VITAMIN D 1000 UNIT TAB PO SCH (07:20)
[2021-01-28] MEDS: THIAMINE HCL 100 MG TABLET PO SCH (07:20)
[2021-01-28] MEDS: ASCORBIC ACID 500 MG TABLET PO SCH ×4 (07:21→20:43)
[2021-01-28] MEDS: FLUCONAZOLE 100 MG TAB PO SCH (07:21)
[2021-01-28] MEDS: ASPIRIN EC 81 MG TAB PO SCH (07:21)
[2021-01-28] MEDS: CEFTRIAXONE/SWI 1gm 1 GM/10 ML SYR IV SCH (07:21)
[2021-01-28 07:31] LABS: Blood Morphology Comment NOT SEEN (NOT SEEN); Platelet Estimate ADEQ
[2021-01-28] MEDS: INSULIN GLARGINE 100 UNITS/ML SQ SCH (07:33)
[2021-01-28] MEDS: BARICITINIB 2 MG TABLET PO SCH (08:54)
[2021-01-28] MEDS: levoFLOXacin 500 MG TAB PO SCH (12:32)
[2021-01-28] MEDS: HYDROCORTISONE ACETATE 25MG SUPP PR PRN (13:18)
--- NOTE | 2021-01-28 13:59 | P.PN ---
Subjective Date of Service: 01/28/21 Chief Complaint: Hypoxia, Covid-19 pneumonia Improvng feeling better Review of Systems General: Weakness Respiratory: Shortness of Breath Physical Examination - Vital Signs Temperature: 98.3 F Blood Pressure: 124/63 Pulse: 104 Respirations: 20 Pulse Ox (%): 92 - Physical Exam General: Alert, In no apparent distress, Cooperative, Mild distress Assessment & Plan - Problems (Diagnosis) (1) Pneumonia due to COVID-19 virus Current Visit: No Status: Acute Plan: Iproving/ Fio2 decreasing/ WBC elevated/ Agree with levaquin an dDiflucan for now
--- NOTE | 2021-01-28 14:22 | P.PN ---
Subjective Date of Service: 01/28/21 Chief Complaint: Hypoxia, Covid-19 pneumonia Subjective: No new changes (With some slight abdominal discomfort this morning, however still requiring 100% FiO2 on nonrebreather/nasal cannula. Intermittent increased work of breathing. Gets tachycardic ambulating to bedside chair.) Review of Systems 10-point ROS is otherwise unremarkable Physical Examination - Vital Signs Temperature: 98.3 F Blood Pressure: 124/63 Pulse: 104 Respirations: 20 Pulse Ox (%): 92 Assessment & Plan Physician Review Additional Text: Physical Exam General: Alert, oriented x3 Respiratory: on HFNC/nonrebreather, tachypneic Cardiovascular: Tachycardic to 120, no edema Gastrointestinal: Soft and benign, Non-distended, No tenderness Musculoskeletal: No joint swelling Integumentary: No rashes, No erythema Assessment: Acute hypoxic respiratory failure secondary to COVID-19 pneumoniafailed outpatient therapy with home oxygen Nonalcoholic cirrhosis of the liver secondary to fatty liver disease Perineal pain Hyperkalemia Acute hypoxic respiratory failure with hypoxia/COVID-19 pneumonia: Continue with IV steroids, oral supplements. wean O2 as tolerated, still requiring HFNC pulmonology is following. Inflammatory markers worsened Continue Baracitinib High risk for thromboembolism. Continue Xarelto. worsening leukocytosis, possibly steroid induced, empirically covered with rocephin - started 01/27. Changed to Levaquin on 01/28 diflucan started 01/24 Nonalcoholic cirrhosis of the liver secondary to fatty liver disease: Stable. Hyperglycemia Likely steroid induced. Continue insulin sliding scale. Lantus insulin added. Titrate Lantus insulin. Hemoglobin A1c is 6.8 -borderline diabetes. Monitor BMP. DVT PPX: Xarelto Code status: Manager Contact Spent Managing Pts Care (In Minutes): 35
[2021-01-28] MEDS: RIVAROXABAN 20 MG TABLET PO SCH (16:05)
[2021-01-29] MEDS: MELATONIN 5 MG TABLET PO PRN ×2 (00:13→20:09)
[2021-01-29] MEDS: clonazePAM 0.5 MG TAB PO PRN ×2 (00:13→09:19)
[2021-01-29 04:23] LABS: Absolute Lymphocytes (CBC) 0.5 K/uL (0.7-4.9); Basophils % 0.1 % (0-1.3); Hematocrit 43.8 % (39.6-49.0); Lymphocytes % 2.4 % (15.3-44.8); MPV 8.8 fL (7.6-11.3); RBC Red Blood Cell Count 4.48 M/uL (4.33-5.43)
[2021-01-29 04:50] LABS: ALT/SGPT 43 U/L (12-78); AST/SGOT 25 U/L (15-37); BUN Blood Urea Nitrogen 23 mg/dL (7-18); Bicarbonate 28 mmol/L (21-32); Glucose Level 179 mg/dL (74-106); Potassium 4.6 mmol/L (3.5-5.1); Sodium Level 139 mmol/L (136-145)
[2021-01-29 04:51] LABS: Albumin 2.4 g/dL (3.4-5.0); Alkaline Phosphatase 132 U/L (45-117); Bilirubin Total 0.7 mg/dL (0.2-1.0); Ferritin 1877.4 ng/mL (26-388); Protein, Total 5.9 g/dL (6.4-8.2)
[2021-01-29] MEDS: INSULIN GLARGINE 100 UNITS/ML SQ SCH (09:00)
[2021-01-29] MEDS: FLUCONAZOLE 100 MG TAB PO SCH (09:04)
[2021-01-29] MEDS: VITAMIN D 1000 UNIT TAB PO SCH (09:04)
[2021-01-29] MEDS: METHYLPREDNISOLONE 40 MG INJ IV SCH ×3 (09:04→20:10)
[2021-01-29] MEDS: HYDROCORTISONE ACETATE 25MG SUPP PR PRN (09:05)
[2021-01-29] MEDS: levoFLOXacin 500 MG TAB PO SCH (09:05)
[2021-01-29] MEDS: ZINC SULFATE 220 MG CAP PO SCH (09:05)
[2021-01-29] MEDS: THIAMINE HCL 100 MG TABLET PO SCH (09:05)
[2021-01-29] MEDS: ASCORBIC ACID 500 MG TABLET PO SCH ×4 (09:05→20:09)
[2021-01-29] MEDS: INSULIN -REGULAR HUMAN 50 UNIT/0.5 ML ML SQ SCH ×4 (09:05→20:10)
[2021-01-29] MEDS: BARICITINIB 2 MG TABLET PO SCH (09:05)
--- NOTE | 2021-01-29 10:36 | P.PN ---
Subjective Date of Service: 01/29/21 Chief Complaint: Hypoxia, Covid-19 pneumonia Subjective: No new changes (No significant change, inflammatory markers increased, patient reports anxiety. Hypoxic and tachycardic with minimal movement) Review of Systems 10-point ROS is otherwise unremarkable Physical Examination - Vital Signs Temperature: 98.1 F Blood Pressure: 113/58 Pulse: 78 Respirations: 28 Pulse Ox (%): 89 Assessment & Plan Physician Review Additional Text: Physical Exam General: Alert, oriented x3 Respiratory: on HFNC/nonrebreather, tachypneic Cardiovascular: Tachycardic to 110s, no edema Gastrointestinal: Soft and benign, Non-distended, No tenderness Musculoskeletal: No joint swelling Integumentary: No rashes, No erythema Assessment: Acute hypoxic respiratory failure secondary to COVID-19 pneumoniafailed outpatient therapy with home oxygen Nonalcoholic cirrhosis of the liver secondary to fatty liver disease Perineal pain, h/o hemorrhoids Hyperkalemia Acute hypoxic respiratory failure with hypoxia/COVID-19 pneumonia: Continue with IV steroids, oral supplements. wean O2 as tolerated, still requiring HFNC pulmonology is following. Inflammatory markers worsened Continue Baracitinib High risk for thromboembolism. Continue Xarelto. worsening leukocytosis, possibly steroid induced, empirically covered with rocephin - started 01/27. Changed to Levaquin on 01/28 diflucan started 01/24 leukocytosis improved Nonalcoholic cirrhosis of the liver secondary to fatty liver disease: Stable. Hyperglycemia steroid induced. Continue insulin sliding scale. Lantus insulin added. Titrate Lantus insulin. Hemoglobin A1c is 6.8 -borderline diabetes. Monitor BMP. DVT PPX: Xarelto Code status: Clinical Geneticist Spent Managing Pts Care (In Minutes): 35
[2021-01-29] MEDS: ASPIRIN EC 81 MG TAB PO SCH (12:37)
[2021-01-29] MEDS: MORPHINE 2 MG/ML SYR IV PRN (13:57)
[2021-01-29] MEDS ORDERED: clonazePAM 0.5 MG TAB PO PRN (15:18)
[2021-01-29] MEDS: RIVAROXABAN 20 MG TABLET PO SCH (17:26)
--- NOTE | 2021-01-29 18:59 | P.PN ---
Subjective Date of Service: 01/29/21 Chief Complaint: Hypoxia, Covid-19 pneumonia Continues to remain hypoxic Review of Systems General: Weakness Respiratory: Shortness of Breath Physical Examination - Vital Signs Temperature: 98 F Blood Pressure: 125/71 Pulse: 99 Respirations: 28 Pulse Ox (%): 86 - Physical Exam General: Alert, Oriented x3, Cooperative Assessment & Plan - Problems (Diagnosis) (1) Pneumonia due to COVID-19 virus Current Visit: No Status: Acute Plan: Resp failure / WBC decreasing/ NC improving?
[2021-01-30 04:34] LABS: Absolute Lymphocytes (CBC) 0.6 K/uL (0.7-4.9); Basophils % 0.4 % (0-1.3); Hematocrit 43.1 % (39.6-49.0); Lymphocytes % 3.1 % (15.3-44.8); MPV 8.7 fL (7.6-11.3); RBC Red Blood Cell Count 4.42 M/uL (4.33-5.43)
[2021-01-30 05:53] LABS: BUN Blood Urea Nitrogen 24 mg/dL (7-18); Bicarbonate 28 mmol/L (21-32); Glucose Level 197 mg/dL (74-106); Potassium 4.7 mmol/L (3.5-5.1); Sodium Level 139 mmol/L (136-145)
--- NOTE | 2021-01-30 06:16 | P.PN ---
Subjective Date of Service: 01/30/21 Chief Complaint: Hypoxia, Covid-19 pneumonia Subjective: No new changes (Patient states he feels better today, having more oxygen saturation up in 90 to 93% at times. Continues with anxiety, states Klonopin and morphine help but still having quite a bit of anxiety. Remains on nasal cannula/nonrebreather. Tachycardic at times with movement and anxiety) Review of Systems 10-point ROS is otherwise unremarkable Physical Examination - Vital Signs Temperature: 97.6 F Blood Pressure: 119/56 Pulse: 82 Respirations: 18 Pulse Ox (%): 92 Assessment & Plan Physician Review Additional Text: Physical Exam General: Alert, oriented x3 Respiratory: on HFNC/nonrebreather, tachypneic Cardiovascular: Tachycardic to 110s, no edema Gastrointestinal: Soft and benign, Non-distended, No tenderness Musculoskeletal: No joint swelling Integumentary: No rashes, No erythema Assessment: Acute hypoxic respiratory failure secondary to COVID-19 pneumoniafailed outpatient therapy with home oxygen Nonalcoholic cirrhosis of the liver secondary to fatty liver disease Perineal pain, h/o hemorrhoids Hyperkalemia Acute hypoxic respiratory failure with hypoxia/COVID-19 pneumonia: Continue with IV steroids, oral supplements. wean O2 as tolerated, may need trial of CPAP/BiPAP pulmonology is following. Inflammatory markers improved, CXR unchanged Continue Baracitinib High risk for thromboembolism. Continue Xarelto. worsening leukocytosis, possibly steroid induced, empirically covered with rocephin - started 01/27. Changed to Levaquin on 01/28 diflucan started 01/24 leukocytosis improved Nonalcoholic cirrhosis of the liver secondary to fatty liver disease: Stable. Hyperglycemia steroid induced. Continue insulin sliding scale. Continue Lantus. Titrate Lantus insulin. Hemoglobin A1c is 6.8 -borderline diabetes. Monitor BMP. DVT PPX: Xarelto Code status: Full Dispo: Anticipate hospitalization for several more days Time Spent Managing Pts Care (In Minutes): 40
--- NOTE | 2021-01-30 07:24 | RAD REPORT ---
EXAM DESCRIPTION: Jamie Single View01/30/2021 6:55 am CLINICAL HISTORY: Hypoxia COMPARISON: January 28, 2021 FINDINGS: No significant change bilateral pulmonary opacities. The heart is borderline enlarged IMPRESSION: No significant change in the bilateral pneumonia
[2021-01-30 07:27] LABS: Ferritin 1770.6 ng/mL (26-388)
[2021-01-30] MEDS: INSULIN GLARGINE 100 UNITS/ML SQ SCH (09:00)
[2021-01-30] MEDS: ASCORBIC ACID 500 MG TABLET PO SCH ×4 (10:04→20:14)
[2021-01-30] MEDS: ASPIRIN EC 81 MG TAB PO SCH (10:04)
[2021-01-30] MEDS: METHYLPREDNISOLONE 40 MG INJ IV SCH ×3 (10:04→20:14)
[2021-01-30] MEDS: VITAMIN D 1000 UNIT TAB PO SCH (10:04)
[2021-01-30] MEDS: THIAMINE HCL 100 MG TABLET PO SCH (10:04)
[2021-01-30] MEDS: levoFLOXacin 500 MG TAB PO SCH (10:05)
[2021-01-30] MEDS: ZINC SULFATE 220 MG CAP PO SCH (10:05)
[2021-01-30] MEDS: INSULIN -REGULAR HUMAN 50 UNIT/0.5 ML ML SQ SCH ×4 (10:05→20:18)
[2021-01-30] MEDS: BENZONATATE 100 MG CAP PO PRN (10:05)
[2021-01-30] MEDS: FLUCONAZOLE 100 MG TAB PO SCH (10:32)
[2021-01-30] MEDS: BARICITINIB 2 MG TABLET PO SCH (10:32)
[2021-01-30] MEDS: clonazePAM 0.5 MG TAB PO PRN ×2 (12:56→20:13)
[2021-01-30] MEDS: RIVAROXABAN 20 MG TABLET PO SCH (17:52)
[2021-01-30] MEDS: MELATONIN 5 MG TABLET PO PRN (20:13)
[2021-01-30 21:14] LABS: Urine Appearance CLEAR (Clear); Urine Bilirubin NEGATIVE (Negative); Urine Blood NEGATIVE (Negative); Urine Color YELLOW (Yellow); Urine Glucose 1+ (Negative); Urine Protein NEGATIVE (Negative); Urine Specific Gravity 1.025 (1.005-1.030)
[2021-01-30 21:27] LABS: Urine Microscopic Reflex NO UMIC
[2021-01-31 07:06] LABS: Absolute Lymphocytes (CBC) 0.7 K/uL (0.7-4.9); Basophils % 0.8 % (0-1.3); Hematocrit 44.7 % (39.6-49.0); Lymphocytes % 3.3 % (15.3-44.8); MPV 8.7 fL (7.6-11.3); RBC Red Blood Cell Count 4.53 M/uL (4.33-5.43)
[2021-01-31 07:09] LABS: C-Reactive Protein 14.4 mg/L (<3.00); Ferritin 1713.1 ng/mL (26-388); Potassium 5.1 mmol/L (3.5-5.1)
[2021-01-31] MEDS: VITAMIN D 1000 UNIT TAB PO SCH (09:19)
[2021-01-31] MEDS: METHYLPREDNISOLONE 40 MG INJ IV SCH ×3 (09:19→22:25)
[2021-01-31] MEDS: ZINC SULFATE 220 MG CAP PO SCH (09:19)
[2021-01-31] MEDS: ASPIRIN EC 81 MG TAB PO SCH (09:19)
[2021-01-31] MEDS: clonazePAM 0.5 MG TAB PO PRN ×2 (09:20→22:31)
[2021-01-31] MEDS: THIAMINE HCL 100 MG TABLET PO SCH (09:20)
[2021-01-31] MEDS: FLUCONAZOLE 100 MG TAB PO SCH (09:20)
[2021-01-31] MEDS: levoFLOXacin 500 MG TAB PO SCH (09:20)
[2021-01-31] MEDS: ASCORBIC ACID 500 MG TABLET PO SCH ×4 (09:20→22:25)
[2021-01-31] MEDS: INSULIN GLARGINE 100 UNITS/ML SQ SCH (09:21)
[2021-01-31] MEDS: BARICITINIB 2 MG TABLET PO SCH (09:21)
[2021-01-31] MEDS: INSULIN -REGULAR HUMAN 50 UNIT/0.5 ML ML SQ SCH ×4 (09:22→22:25)
[2021-01-31] MEDS: BENZONATATE 100 MG CAP PO PRN ×2 (13:07→22:35)
--- NOTE | 2021-01-31 14:56 | P.PN ---
Subjective Date of Service: 01/31/21 Chief Complaint: Hypoxia, Covid-19 pneumonia Subjective: Improving (Tolerated CPAP overnight, reports oxygen saturation up to 96% at times, anxiety much better after increasing Klonopin. Still hypoxic with minimal movement) Review of Systems 10-point ROS is otherwise unremarkable Physical Examination - Vital Signs Temperature: 98 F Blood Pressure: 113/61 Pulse: 93 Respirations: 26 Pulse Ox (%): 94 Assessment & Plan Physician Review Additional Text: Physical Exam General: Alert, oriented x3 Respiratory: on HFNC/nonrebreather, tachypneic Cardiovascular: Tachycardic to 100, no edema Gastrointestinal: Soft and benign, Non-distended, No tenderness Musculoskeletal: No joint swelling Integumentary: No rashes, No erythema Assessment: Acute hypoxic respiratory failure secondary to COVID-19 pneumoniafailed outpatient therapy with home oxygen Nonalcoholic cirrhosis of the liver secondary to fatty liver disease Perineal pain, h/o hemorrhoids Hyperkalemia Acute hypoxic respiratory failure with hypoxia/COVID-19 pneumonia: Continue with IV steroids, oral supplements. wean O2 as tolerated pulmonology is following. Inflammatory markers improved, CXR unchanged Continue Baracitinib High risk for thromboembolism. Continue Xarelto. worsening leukocytosis, possibly steroid induced, empirically covered with rocephin - started 01/27. Changed to Levaquin on 01/28 diflucan started 01/24 leukocytosis improved / stable Nonalcoholic cirrhosis of the liver secondary to fatty liver disease: Stable. Hyperglycemia steroid induced. Continue insulin sliding scale. Continue Lantus. Titrate Lantus insulin again Hemoglobin A1c is 6.8 -borderline diabetes. Monitor BMP. DVT PPX: Xarelto Code status: Full Dispo: Anticipate hospitalization for several more days Time Spent Managing Pts Care (In Minutes): 35
[2021-01-31] MEDS: RIVAROXABAN 20 MG TABLET PO SCH (17:05)
[2021-01-31] MEDS: MELATONIN 5 MG TABLET PO PRN (22:31)
[2021-02-01 05:56] LABS: Absolute Lymphocytes (CBC) 0.6 K/uL (0.7-4.9); Basophils % 0.3 % (0-1.3); Hematocrit 44.9 % (39.6-49.0); Lymphocytes % 2.6 % (15.3-44.8); MPV 8.3 fL (7.6-11.3); RBC Red Blood Cell Count 4.58 M/uL (4.33-5.43)
[2021-02-01 06:28] LABS: C-Reactive Protein 7.51 mg/L (<3.00); Ferritin 1602.9 ng/mL (26-388)
[2021-02-01 06:36] LABS: Blood Morphology Comment NOT SEEN (NOT SEEN); Platelet Estimate ADEQ
[2021-02-01] MEDS: THIAMINE HCL 100 MG TABLET PO SCH (08:36)
[2021-02-01] MEDS: ZINC SULFATE 220 MG CAP PO SCH (08:36)
[2021-02-01] MEDS: clonazePAM 0.5 MG TAB PO PRN ×2 (08:37→19:54)
[2021-02-01] MEDS: VITAMIN D 1000 UNIT TAB PO SCH (08:37)
[2021-02-01] MEDS: ASPIRIN EC 81 MG TAB PO SCH (08:37)
[2021-02-01] MEDS: levoFLOXacin 500 MG TAB PO SCH (08:37)
[2021-02-01] MEDS: INSULIN -REGULAR HUMAN 50 UNIT/0.5 ML ML SQ SCH ×4 (08:38→19:56)
[2021-02-01] MEDS: ASCORBIC ACID 500 MG TABLET PO SCH ×4 (08:38→19:55)
[2021-02-01] MEDS: BARICITINIB 2 MG TABLET PO SCH (08:38)
[2021-02-01] MEDS: INSULIN GLARGINE 100 UNITS/ML SQ SCH (08:39)
[2021-02-01] MEDS: METHYLPREDNISOLONE 40 MG INJ IV SCH ×3 (08:42→19:56)
[2021-02-01] MEDS: FLUCONAZOLE 100 MG TAB PO SCH (09:26)
--- NOTE | 2021-02-01 13:51 | P.PN ---
Subjective Date of Service: 02/01/21 Chief Complaint: Hypoxia, Covid-19 pneumonia Subjective: Improving (Tolerated CPAP overnight, overall feels a little bit better. Feels increased dose of Klonopin has significantly helped him.) Review of Systems 10-point ROS is otherwise unremarkable Physical Examination - Vital Signs Temperature: 98.1 F Blood Pressure: 131/95 Pulse: 101 Respirations: 21 Pulse Ox (%): 92 Assessment & Plan Physician Review Additional Text: Physical Exam General: Alert, oriented x3 Respiratory: on HFNC/nonrebreather, tachypneic Cardiovascular: Tachycardic to 105, no edema Gastrointestinal: Soft and benign, Non-distended, No tenderness Musculoskeletal: No joint swelling Integumentary: No rashes, No erythema Assessment: Acute hypoxic respiratory failure secondary to COVID-19 pneumoniafailed outpatient therapy with home oxygen 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 wean O2 as tolerated pulmonology is following. Inflammatory markers improved, CXR unchanged Continue Baracitinib High risk for thromboembolism. Continue Xarelto. worsening leukocytosis, possibly steroid induced, empirically covered with rocephin - started 01/27. Changed to Levaquin on 01/28 diflucan started 01/24 Nonalcoholic cirrhosis of the liver secondary to fatty liver disease: Stable. Hyperglycemia steroid induced. Continue insulin sliding scale. Continue Lantus. Titrate Lantus insulin again Hemoglobin A1c is 6.8 -borderline diabetes. Monitor BMP. DVT PPX: Xarelto Code status: Full Dispo: Anticipate hospitalization for several more days Will discuss possibility for LTAC with patient Time Spent Managing Pts Care (In Minutes): 40
[2021-02-01] MEDS: MORPHINE 2 MG/ML SYR IV PRN (15:19)
[2021-02-01] MEDS: RIVAROXABAN 20 MG TABLET PO SCH (17:03)
[2021-02-01] MEDS: MELATONIN 5 MG TABLET PO PRN (19:55)
[2021-02-01] MEDS: BENZONATATE 100 MG CAP PO PRN (19:58)
[2021-02-02 04:03] LABS: Absolute Lymphocytes (CBC) 0.6 K/uL (0.7-4.9); Basophils % 0.4 % (0-1.3); Hematocrit 45.1 % (39.6-49.0); Lymphocytes % 2.9 % (15.3-44.8); MPV 8.6 fL (7.6-11.3); RBC Red Blood Cell Count 4.64 M/uL (4.33-5.43)
[2021-02-02 04:10] LABS: BUN Blood Urea Nitrogen 27 mg/dL (7-18); Bicarbonate 30 mmol/L (21-32); C-Reactive Protein 3.87 mg/L (<3.00); Glucose Level 211 mg/dL (74-106); Magnesium 2.4 mg/dL (1.8-2.4); Potassium 4.9 mmol/L (3.5-5.1); Sodium Level 138 mmol/L (136-145)
[2021-02-02] MEDS: INSULIN -REGULAR HUMAN 50 UNIT/0.5 ML ML SQ SCH ×4 (07:30→21:12)
[2021-02-02] MEDS: ASPIRIN EC 81 MG TAB PO SCH (08:04)
[2021-02-02] MEDS: VITAMIN D 1000 UNIT TAB PO SCH (08:05)
[2021-02-02] MEDS: METHYLPREDNISOLONE 40 MG INJ IV SCH ×3 (08:05→19:28)
[2021-02-02] MEDS: ZINC SULFATE 220 MG CAP PO SCH (08:05)
[2021-02-02] MEDS: levoFLOXacin 500 MG TAB PO SCH (08:05)
[2021-02-02] MEDS: ASCORBIC ACID 500 MG TABLET PO SCH ×4 (08:05→19:28)
[2021-02-02] MEDS: THIAMINE HCL 100 MG TABLET PO SCH (08:05)
[2021-02-02] MEDS: INSULIN GLARGINE 100 UNITS/ML SQ SCH (08:23)
[2021-02-02] MEDS: FLUCONAZOLE 100 MG TAB PO SCH (08:26)
[2021-02-02] MEDS: BARICITINIB 2 MG TABLET PO SCH (08:27)
[2021-02-02] MEDS: clonazePAM 0.5 MG TAB PO PRN ×3 (09:00→21:11)
[2021-02-02] MEDS ORDERED: LORATADINE 10 MG TAB PO PRN (13:13)
--- NOTE | 2021-02-02 13:19 | P.PN ---
Subjective Date of Service: 02/02/21 Chief Complaint: Hypoxia, Covid-19 pneumonia Patient tolerating oxygen by 15L nasal cannula plus Ventimask He is complaining of nasal congestion. Physical Examination - Vital Signs Temperature: 97.6 F Blood Pressure: 115/70 Pulse: 113 Respirations: 25 Pulse Ox (%): 88 - Physical Exam General: Alert, In no apparent distress, Oriented x3 HEENT: Mucous membr. 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 On 15 L oxygen by nasal cannula and Ventimask wean O2 as tolerated Inflammatory markers improved, CXR unchanged Continue Baracitinib High risk for thromboembolism. Continue Xarelto. Persistent leukocytosis, likely steroid induced, empirically covered with rocephin - started 01/27. Changed to Levaquin on 01/28. Continue oral Levaquin diflucan started 01/24 Nasal saline spray and Claritin for nasal congestion. Nonalcoholic cirrhosis of the liver secondary to fatty liver disease: Stable. Hyperglycemia steroid induced. Continue insulin sliding scale. Continue Lantus. Titrate Lantus insulin again Hemoglobin A1c is 6.8 -borderline diabetes. Monitor BMP. DVT PPX: Xarelto Code status: Full
[2021-02-02] MEDS: RIVAROXABAN 20 MG TABLET PO SCH (15:59)
[2021-02-02] MEDS: SOD CHLORIDE 0.65% NASAL SPRAY NAS SCH ×2 (16:02→19:28)
[2021-02-02] MEDS: MELATONIN 5 MG TABLET PO PRN (19:28)
[2021-02-02] MEDS: BENZONATATE 100 MG CAP PO PRN (19:28)
[2021-02-03 05:59] LABS: Absolute Lymphocytes (CBC) 0.7 K/uL (0.7-4.9); Basophils % 0.3 % (0-1.3); Hematocrit 45.7 % (39.6-49.0); Lymphocytes % 3.4 % (15.3-44.8); MPV 8.9 fL (7.6-11.3); RBC Red Blood Cell Count 4.67 M/uL (4.33-5.43)
[2021-02-03] MEDS: BARICITINIB 2 MG TABLET PO SCH (08:20)
[2021-02-03] MEDS: VITAMIN D 1000 UNIT TAB PO SCH (08:20)
[2021-02-03] MEDS: ASPIRIN EC 81 MG TAB PO SCH (08:20)
[2021-02-03] MEDS: METHYLPREDNISOLONE 40 MG INJ IV SCH ×3 (08:21→19:43)
[2021-02-03] MEDS: FLUCONAZOLE 100 MG TAB PO SCH (08:21)
[2021-02-03] MEDS: INSULIN GLARGINE 100 UNITS/ML SQ SCH (08:22)
[2021-02-03] MEDS: THIAMINE HCL 100 MG TABLET PO SCH (08:22)
[2021-02-03] MEDS: ZINC SULFATE 220 MG CAP PO SCH (08:22)
[2021-02-03] MEDS: ASCORBIC ACID 500 MG TABLET PO SCH ×4 (08:22→19:43)
[2021-02-03] MEDS: levoFLOXacin 500 MG TAB PO SCH (08:22)
[2021-02-03] MEDS: SOD CHLORIDE 0.65% NASAL SPRAY NAS SCH ×4 (08:25→19:44)
[2021-02-03] MEDS: INSULIN -REGULAR HUMAN 50 UNIT/0.5 ML ML SQ SCH ×4 (08:34→19:43)
[2021-02-03] MEDS: clonazePAM 0.5 MG TAB PO PRN ×3 (09:02→19:43)
--- NOTE | 2021-02-03 11:11 | P.PN ---
Subjective Date of Service: 02/03/21 Chief Complaint: Hypoxia, Covid-19 pneumonia Improving anxious Review of Systems General: Weakness Respiratory: Shortness of Breath Physical Examination - Vital Signs Temperature: 96.9 F Blood Pressure: 111/88 Pulse: 114 Respirations: 34 Pulse Ox (%): 94 Assessment & Plan - Problems (Diagnosis) (1) Pneumonia due to COVID-19 virus Current Visit: No Status: Acute Plan: titrate O2 sat of 90% Do ABG's/ WBC elevated/ on max TX
--- NOTE | 2021-02-03 14:21 | P.PN ---
Subjective Date of Service: 02/03/21 Chief Complaint: Hypoxia, Covid-19 pneumonia Patient using oxygen by 15L nasal cannula plus Ventimask. Physical Examination - Vital Signs Temperature: 98.1 F Blood Pressure: 97/68 Pulse: 103 Respirations: 32 Pulse Ox (%): 94 - Physical Exam General: In no apparent distress Neck: JVD not distended Respiratory: Other (Nonlabored breathing) Cardiovascular: Regular rate/rhythm, Normal S1 S2 Gastrointestinal: Soft and benign, Non-distended Musculoskeletal: No swelling Integumentary: No rashes Neurological: Normal strength at 5/5 x4 extr Assessment And Plan Physician Review Additional Text: Assessment: Acute hypoxic respiratory failure secondary to COVID-19 pneumoniafailed outpatient therapy with home oxygen 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 On 15 L oxygen by nasal cannula and Ventimask wean O2 as tolerated Continue Baracitinib High risk for thromboembolism. Continue Xarelto. Persistent leukocytosis, likely steroid induced, empirically covered with rocephin - started 01/27. Changed to Levaquin on 01/28. Continue oral Levaquin Diflucan started 01/24 Nasal saline spray, nasonex and Claritin for nasal congestion. Nonalcoholic cirrhosis of the liver secondary to fatty liver disease: Stable. Hyperglycemia steroid induced. Continue insulin sliding scale. Continue Lantus. Titrate Lantus insulin. Hemoglobin A1c is 6.8 -borderline diabetes. Monitor BMP. DVT PPX: Xarelto Code status: Full
[2021-02-03] MEDS: RIVAROXABAN 20 MG TABLET PO SCH (17:07)
[2021-02-03] MEDS: BENZONATATE 100 MG CAP PO PRN (19:43)
[2021-02-03] MEDS: MELATONIN 5 MG TABLET PO PRN (22:13)
[2021-02-04] MEDS: clonazePAM 0.5 MG TAB PO PRN ×3 (03:11→19:39)
[2021-02-04 05:37] LABS: Absolute Lymphocytes (CBC) 0.8 K/uL (0.7-4.9); Basophils % 0.3 % (0-1.3); Lymphocytes % 2.9 % (15.3-44.8); MPV 8.5 fL (7.6-11.3); RBC Red Blood Cell Count 4.65 M/uL (4.33-5.43)
[2021-02-04 05:51] LABS: BUN Blood Urea Nitrogen 23 mg/dL (7-18); Bicarbonate 31 mmol/L (21-32); Glucose Level 217 mg/dL (74-106); Potassium 4.9 mmol/L (3.5-5.1); Sodium Level 137 mmol/L (136-145)
[2021-02-04 07:20] LABS: Blood Morphology Comment NOT SEEN (NOT SEEN); Platelet Estimate ADEQ
[2021-02-04] MEDS: VITAMIN D 1000 UNIT TAB PO SCH (08:10)
[2021-02-04] MEDS: ASPIRIN EC 81 MG TAB PO SCH (08:10)
[2021-02-04] MEDS: ASCORBIC ACID 500 MG TABLET PO SCH ×4 (08:10→19:39)
[2021-02-04] MEDS: ZINC SULFATE 220 MG CAP PO SCH (08:10)
[2021-02-04] MEDS: levoFLOXacin 500 MG TAB PO SCH (08:10)
[2021-02-04] MEDS: THIAMINE HCL 100 MG TABLET PO SCH (08:10)
[2021-02-04] MEDS: METHYLPREDNISOLONE 40 MG INJ IV SCH ×3 (08:10→19:39)
[2021-02-04] MEDS: BENZONATATE 100 MG CAP PO PRN ×2 (08:10→19:39)
[2021-02-04] MEDS: INSULIN -REGULAR HUMAN 50 UNIT/0.5 ML ML SQ SCH ×4 (08:14→21:03)
[2021-02-04] MEDS: INSULIN GLARGINE 100 UNITS/ML SQ SCH (08:14)
[2021-02-04] MEDS: SOD CHLORIDE 0.65% NASAL SPRAY NAS SCH ×4 (08:20→19:39)
[2021-02-04] MEDS: BARICITINIB 2 MG TABLET PO SCH (08:44)
[2021-02-04] MEDS: FLUCONAZOLE 100 MG TAB PO SCH (09:53)
[2021-02-04] MEDS ORDERED: VANCOMYCIN 3 GM in NA CHLORIDE 0.9% 500 ML IVPB ONE (13:00)
--- NOTE | 2021-02-04 13:18 | P.PN ---
Subjective Date of Service: 02/04/21 Chief Complaint: Hypoxia, Covid-19 pneumonia Patient using 100% non-rebreather mask. Persistent leukocytosis. Physical Examination - Vital Signs Temperature: 97.4 F Blood Pressure: 96/75 Pulse: 72 Respirations: 22 Pulse Ox (%): 96 Assessment And Plan Physician Review Additional Text: Physical Exam General: Alert, oriented x3 Respiratory:On 100% nonrebreather. Cardiovascular: No edema. Intermittent tachycardia. 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 On 100% non-rebreather mask. wean O2 as tolerated Continue Baracitinib High risk for thromboembolism. Continue Xarelto. Persistent leukocytosis, likely steroid induced, empirically covered with rocephin - started 01/27. Change antibiotics to IV vancomycin and cefepime. Repeat blood culture as patient continued to flag for sepsis Continue Diflucan. Nasal saline spray, nasonex and Claritin for nasal congestion. Nonalcoholic cirrhosis of the liver secondary to fatty liver disease: Stable. Hyperglycemia steroid induced. Continue insulin sliding scale. Continue Lantus. Titrate Lantus insulin. Hemoglobin A1c is 6.8 -borderline diabetes. Monitor BMP. Testosterone deficiency Resume home dose testosterone injection. DVT PPX: Xarelto Code status: Full
[2021-02-04] MEDS: RIVAROXABAN 20 MG TABLET PO SCH (16:24)
[2021-02-04] MEDS: CEFEPIME/SWI 2gm 2 GM/20 ML SYR IV SCH (17:41)
[2021-02-05] MEDS: CEFEPIME/SWI 2gm 2 GM/20 ML SYR IV SCH ×3 (00:58→17:32)
[2021-02-05] MEDS: clonazePAM 0.5 MG TAB PO PRN ×4 (00:58→19:29)
[2021-02-05] MEDS: VANCOMYCIN 2 GM in NA CHLORIDE 0.9% 500 ML IVPB SCH ×2 (05:37→17:31)
[2021-02-05 05:55] LABS: Absolute Lymphocytes (CBC) 0.7 K/uL (0.7-4.9); Basophils % 0.3 % (0-1.3); Hematocrit 44.5 % (39.6-49.0); Lymphocytes % 2.8 % (15.3-44.8); MPV 8.5 fL (7.6-11.3); RBC Red Blood Cell Count 4.56 M/uL (4.33-5.43)
[2021-02-05 06:01] LABS: BUN Blood Urea Nitrogen 27 mg/dL (7-18); Bicarbonate 29 mmol/L (21-32); Glucose Level 256 mg/dL (74-106); Potassium 4.7 mmol/L (3.5-5.1); Sodium Level 138 mmol/L (136-145)
[2021-02-05] MEDS: INSULIN GLARGINE 100 UNITS/ML SQ SCH (08:20)
[2021-02-05] MEDS: INSULIN -REGULAR HUMAN 50 UNIT/0.5 ML ML SQ SCH ×4 (08:20→20:42)
[2021-02-05] MEDS: METHYLPREDNISOLONE 40 MG INJ IV SCH ×3 (08:21→19:30)
[2021-02-05] MEDS: ASCORBIC ACID 500 MG TABLET PO SCH ×4 (08:21→19:31)
[2021-02-05] MEDS: VITAMIN D 1000 UNIT TAB PO SCH (08:21)
[2021-02-05] MEDS: ZINC SULFATE 220 MG CAP PO SCH (08:21)
[2021-02-05] MEDS: BARICITINIB 2 MG TABLET PO SCH (08:22)
[2021-02-05] MEDS: THIAMINE HCL 100 MG TABLET PO SCH (08:22)
[2021-02-05] MEDS: ASPIRIN EC 81 MG TAB PO SCH (08:22)
[2021-02-05] MEDS: SOD CHLORIDE 0.65% NASAL SPRAY NAS SCH ×4 (08:23→19:31)
--- NOTE | 2021-02-05 15:25 | P.PN ---
Subjective Date of Service: 02/05/21 Chief Complaint: Hypoxia, Covid-19 pneumonia Patient tolerating 80% Ventimask today Physical Examination - Vital Signs Temperature: 98.0 F Blood Pressure: 132/74 Pulse: 109 Respirations: 10 Pulse Ox (%): 85 Assessment And Plan Physician Review Additional Text: Physical Exam General: Alert, oriented x3. Obese Respiratory:On 80% ventimask Cardiovascular: No edema. Intermittent tachycardia. 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 wean O2 as tolerated Continue Baracitinib High risk for thromboembolism. Continue Xarelto. Persistent leukocytosis, likely steroid induced, empirically covered with rocephin - started 01/27. Continue IV vancomycin and cefepime for 1 more. Repeat blood culture: No growth to date Continue Diflucan. Nasal saline spray, nasonex and Claritin for nasal congestion. Nonalcoholic cirrhosis of the liver secondary to fatty liver disease: Stable. Hyperglycemia steroid induced. Continue insulin sliding scale. Continue Lantus. Titrate Lantus insulin. Hemoglobin A1c is 6.8 -borderline diabetes. Monitor BMP. Testosterone deficiency Resume home dose testosterone injections. DVT PPX: Xarelto Code status: Full
--- NOTE | 2021-02-05 15:57 | P.PN ---
Subjective Date of Service: 02/05/21 Chief Complaint: Hypoxia, Covid-19 pneumonia Respiratory failure still very hypoxic Review of Systems General: Weakness Respiratory: Shortness of Breath Physical Examination - Vital Signs Temperature: 98.0 F Blood Pressure: 132/74 Pulse: 109 Respirations: 10 Pulse Ox (%): 85 - Physical Exam General: Alert, Oriented x3, Cooperative Assessment & Plan - Problems (Diagnosis) (1) Pneumonia due to COVID-19 virus Current Visit: No Status: Acute Plan: Respiratory failure still on significant oxygen treatment white count is elevated on maximal therapy broad-spectrum antibiotics cultures so far negative about another chest x-ray and serum procalcitonin prognosis poor
[2021-02-05] MEDS: RIVAROXABAN 20 MG TABLET PO SCH (16:59)
--- NOTE | 2021-02-05 18:30 | RAD REPORT ---
EXAM DESCRIPTION: RAD - Chest Single View - 02/05/2021 5:53 pm CLINICAL HISTORY: Device placement PICC line placement . IMPRESSION: A PICC line has been placed. The tip is not clearly visualized but probably lies within mid superior vena cava
[2021-02-05] MEDS: BENZONATATE 100 MG CAP PO PRN (19:31)
[2021-02-05] MEDS: MELATONIN 5 MG TABLET PO PRN (19:46)
[2021-02-06] MEDS: clonazePAM 0.5 MG TAB PO PRN ×2 (01:09→14:25)
[2021-02-06] MEDS: CEFEPIME/SWI 2gm 2 GM/20 ML SYR IV SCH ×3 (01:09→16:29)
[2021-02-06 04:37] LABS: Absolute Lymphocytes (CBC) 0.5 K/uL (0.7-4.9); Basophils % 0.4 % (0-1.3); Hematocrit 43.6 % (39.6-49.0); Lymphocytes % 2.3 % (15.3-44.8); MPV 8.7 fL (7.6-11.3); RBC Red Blood Cell Count 4.44 M/uL (4.33-5.43)
[2021-02-06 04:48] LABS: BUN Blood Urea Nitrogen 27 mg/dL (7-18); Bicarbonate 30 mmol/L (21-32); Glucose Level 224 mg/dL (74-106); Potassium 4.6 mmol/L (3.5-5.1); Sodium Level 140 mmol/L (136-145)
[2021-02-06] MEDS: VANCOMYCIN 2 GM in NA CHLORIDE 0.9% 500 ML IVPB SCH (05:52)
[2021-02-06] MEDS: METHYLPREDNISOLONE 40 MG INJ IV SCH ×3 (08:34→21:18)
[2021-02-06] MEDS: VITAMIN D 1000 UNIT TAB PO SCH (08:34)
[2021-02-06] MEDS: ASPIRIN EC 81 MG TAB PO SCH (08:34)
[2021-02-06] MEDS: ZINC SULFATE 220 MG CAP PO SCH (08:35)
[2021-02-06] MEDS: ASCORBIC ACID 500 MG TABLET PO SCH ×4 (08:35→21:18)
[2021-02-06] MEDS: BARICITINIB 2 MG TABLET PO SCH (08:35)
[2021-02-06] MEDS: THIAMINE HCL 100 MG TABLET PO SCH (08:35)
[2021-02-06] MEDS: INSULIN GLARGINE 100 UNITS/ML SQ SCH (08:36)
[2021-02-06] MEDS: INSULIN -REGULAR HUMAN 50 UNIT/0.5 ML ML SQ SCH ×4 (08:36→21:19)
[2021-02-06] MEDS: SOD CHLORIDE 0.65% NASAL SPRAY NAS SCH ×4 (08:37→21:00)
--- NOTE | 2021-02-06 10:53 | RAD REPORT ---
EXAM DESCRIPTION: RAD - Chest Single View - 02/06/2021 7:10 am CLINICAL HISTORY: Respiratory failure Chest pain. COMPARISON: Chest Single View dated 02/05/2021; Chest Single View dated 01/30/2021; Chest Single View dated 01/27/2021; Chest Single View dated 01/23/2021 FINDINGS: Portable technique limits examination quality. Tip of the right PICC line appears at the atrial caval junction. Asymmetric bilateral pulmonary opaci ties, greater on the left, appear unchanged since yesterday's study. Heart is mildly enlarged in size .
--- NOTE | 2021-02-06 13:16 | P.PN ---
Subjective Date of Service: 02/06/21 Chief Complaint: Hypoxia, Covid-19 pneumonia Patient now on 100% non-rebreather mask. Physical Examination - Vital Signs Temperature: 97.8 F Blood Pressure: 137/88 Pulse: 97 Respirations: 20 Pulse Ox (%): 93 - Physical Exam General: Alert, In no apparent distress Neck: JVD not distended Respiratory: Other (Nonlabored breathing) Cardiovascular: Regular rate/rhythm, Normal S1 S2 Gastrointestinal: Soft and benign, Non-distended Musculoskeletal: No swelling Integumentary: No rashes Neurological: Normal strength at 5/5 x4 extr Assessment And Plan Physician Review Additional Text: Physical Exam General: Alert, oriented x3. Obese Respiratory:On 80% ventimask Cardiovascular: No edema. Intermittent tachycardia. 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 Fluctuating oxygen requirement Completed Baracitinib Continue Xarelto. Persistent leukocytosis, likely steroid induced, empirically covered with rocephin - started 01/27. Continue IV vancomycin and cefepime Repeat blood culture: No growth to date Continue Diflucan. Nasal saline spray, nasonex and Claritin for nasal congestion. Nonalcoholic cirrhosis of the liver secondary to fatty liver disease: Stable. Hyperglycemia steroid induced. Continue insulin sliding scale. Continue Lantus. Titrate Lantus insulin. Hemoglobin A1c is 6.8 -borderline diabetes. Monitor BMP. Testosterone deficiency Resume home dose testosterone injections. DVT PPX: Xarelto Code status: Full
[2021-02-06] MEDS: RIVAROXABAN 20 MG TABLET PO SCH (16:29)
[2021-02-06] MEDS: VANCOMYCIN 2.25 GM in NA CHLORIDE 0.9% 500 ML IVPB SCH (16:29)
[2021-02-06] MEDS ORDERED: MORPHINE 4 MG/ML SYR IV ONE (21:08)
[2021-02-07] MEDS: CEFEPIME/SWI 2gm 2 GM/20 ML SYR IV SCH ×3 (00:23→17:12)
[2021-02-07] MEDS: VANCOMYCIN 2.25 GM in NA CHLORIDE 0.9% 500 ML IVPB SCH ×2 (04:03→17:12)
[2021-02-07 04:23] LABS: Absolute Lymphocytes (CBC) 0.6 K/uL (0.7-4.9); Basophils % 0.3 % (0-1.3); Hematocrit 45.6 % (39.6-49.0); Lymphocytes % 2.1 % (15.3-44.8); MPV 8.6 fL (7.6-11.3); RBC Red Blood Cell Count 4.68 M/uL (4.33-5.43)
[2021-02-07 04:55] LABS: BUN Blood Urea Nitrogen 25 mg/dL (7-18); Bicarbonate 29 mmol/L (21-32); Glucose Level 219 mg/dL (74-106); Potassium 4.5 mmol/L (3.5-5.1); Sodium Level 140 mmol/L (136-145)
[2021-02-07] MEDS: METHYLPREDNISOLONE 40 MG INJ IV SCH ×3 (09:19→20:01)
[2021-02-07] MEDS: ASCORBIC ACID 500 MG TABLET PO SCH ×4 (09:19→20:00)
[2021-02-07] MEDS: ZINC SULFATE 220 MG CAP PO SCH (09:19)
[2021-02-07] MEDS: VITAMIN D 1000 UNIT TAB PO SCH (09:19)
[2021-02-07] MEDS: INSULIN GLARGINE 100 UNITS/ML SQ SCH (09:20)
[2021-02-07] MEDS: THIAMINE HCL 100 MG TABLET PO SCH (09:20)
[2021-02-07] MEDS: SOD CHLORIDE 0.65% NASAL SPRAY NAS SCH ×4 (09:22→20:01)
[2021-02-07] MEDS: INSULIN -REGULAR HUMAN 50 UNIT/0.5 ML ML SQ SCH ×4 (09:25→21:07)
[2021-02-07] MEDS: clonazePAM 0.5 MG TAB PO PRN ×2 (10:30→17:54)
[2021-02-07] MEDS: ASPIRIN EC 81 MG TAB PO SCH (10:42)
--- NOTE | 2021-02-07 11:14 | P.PN ---
Subjective Date of Service: 02/07/21 Chief Complaint: Respiratory failure Patient is improving oxygen requirements have improved is on 15 L that is 98% Review of Systems General: Weakness Respiratory: Shortness of Breath Physical Examination - Vital Signs Temperature: 97.4 F Blood Pressure: 140/82 Pulse: 91 Respirations: 18 Pulse Ox (%): 96 - Physical Exam General: Alert, Oriented x3, Cooperative Assessment & Plan - Problems (Diagnosis) (1) Pneumonia due to COVID-19 virus Current Visit: No Status: Acute Plan: Respiratory failure improving continue to wean down his oxygen count elevated she started on Diflucan recent blood cultures negative 1 dose of IV Lasix
--- NOTE | 2021-02-07 11:55 | P.PN ---
Subjective Date of Service: 02/07/21 Chief Complaint: Respiratory failure Patient is on 100% non-rebreather mask and saturating at 98%. Physical Examination - Vital Signs Temperature: 97.4 F Blood Pressure: 140/82 Pulse: 91 Respirations: 18 Pulse Ox (%): 96 - Physical Exam General: In no apparent distress, Oriented x3 Assessment And Plan Physician Review Additional Text: Physical Exam General: Alert, oriented x3. Obese Respiratory: Nonlabored breathing. Cardiovascular: No edema. Intermittent tachycardia. 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 Completed Baracitinib Continue Xarelto. Persistent leukocytosis, likely steroid induced, empirically covered with rocephin - started 01/27. Continue IV antibiotics. Repeat blood culture: No growth to date Continue Diflucan. Nasal saline spray, nasonex and Claritin for nasal congestion. Nonalcoholic cirrhosis of the liver secondary to fatty liver disease: Stable. Hyperglycemia steroid induced. Continue insulin sliding scale. Continue Lantus. Titrate Lantus insulin. Hemoglobin A1c is 6.8 -borderline diabetes. Monitor BMP. Testosterone deficiency Continue home dose testosterone injections. DVT PPX: Xarelto Code status: Full
[2021-02-07] MEDS ORDERED: FUROSEMIDE 20 MG/ 2ML VIAL IV ONE (13:00)
[2021-02-07] MEDS: FLUCONAZOLE 100 MG TAB PO SCH (13:18)
[2021-02-07] MEDS: RIVAROXABAN 20 MG TABLET PO SCH (17:15)
[2021-02-07] MEDS: MELATONIN 5 MG TABLET PO PRN (20:00)
[2021-02-07] MEDS: BENZONATATE 100 MG CAP PO PRN (20:00)
[2021-02-08] MEDS: CEFEPIME/SWI 2gm 2 GM/20 ML SYR IV SCH ×2 (00:36→08:34)
[2021-02-08 04:09] LABS: Absolute Lymphocytes (CBC) 0.5 K/uL (0.7-4.9); Basophils % 0.1 % (0-1.3); Hematocrit 42.7 % (39.6-49.0); Lymphocytes % 1.9 % (15.3-44.8); MPV 8.2 fL (7.6-11.3)
[2021-02-08] MEDS: VANCOMYCIN 2.25 GM in NA CHLORIDE 0.9% 500 ML IVPB SCH (05:36)
[2021-02-08] MEDS: VITAMIN D 1000 UNIT TAB PO SCH (08:29)
[2021-02-08] MEDS: ASCORBIC ACID 500 MG TABLET PO SCH ×4 (08:29→20:23)
[2021-02-08] MEDS: clonazePAM 0.5 MG TAB PO PRN ×2 (08:29→20:23)
[2021-02-08] MEDS: THIAMINE HCL 100 MG TABLET PO SCH (08:30)
[2021-02-08] MEDS: INSULIN -REGULAR HUMAN 50 UNIT/0.5 ML ML SQ SCH ×4 (08:30→20:35)
[2021-02-08] MEDS: METHYLPREDNISOLONE 40 MG INJ IV SCH ×3 (08:30→20:23)
[2021-02-08] MEDS: INSULIN GLARGINE 100 UNITS/ML SQ SCH (08:31)
[2021-02-08] MEDS: ZINC SULFATE 220 MG CAP PO SCH (08:32)
[2021-02-08] MEDS: SOD CHLORIDE 0.65% NASAL SPRAY NAS SCH ×4 (08:32→20:23)
[2021-02-08] MEDS: FLUCONAZOLE 100 MG TAB PO SCH (08:34)
[2021-02-08 10:37] LABS: Blood Morphology Comment NOT SEEN (NOT SEEN); Platelet Estimate DECR; White Blood Cell Scan OK (OK)
[2021-02-08] MEDS: ASPIRIN EC 81 MG TAB PO SCH (11:28)
[2021-02-08] MEDS: BENZONATATE 100 MG CAP PO PRN ×2 (11:28→20:35)
--- NOTE | 2021-02-08 14:08 | P.PN ---
Subjective Date of Service: 02/08/21 Chief Complaint: Respiratory failure Patient has been on 100% non-rebreather mask for several days. He states he feels fine. He denies shortness of breath at rest but endorsed [facility]. Physical Examination - Vital Signs Temperature: 97.5 F Blood Pressure: 137/91 Pulse: 109 Respirations: 28 Pulse Ox (%): 94 - Physical Exam General: Alert, In no apparent distress, Oriented x3 Neck: JVD not distended Respiratory: Other (Nonlabored breathing.) Cardiovascular: Normal S1 S2 (Tachycardic) Gastrointestinal: Soft and benign, Non-distended Musculoskeletal: No swelling Integumentary: No rashes Neurological: Normal strength at 5/5 x4 extr Assessment And Plan Physician Review Additional Text: Physical Exam General: Alert, oriented x3. Obese Respiratory: Nonlabored breathing. Cardiovascular: No edema. Intermittent tachycardia. 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 Completed Baracitinib Continue Xarelto. Persistent leukocytosis, likely steroid induced, empirically covered with rocephin - started 01/27. Continue antibiotics. Repeat blood culture: No growth to date Continue Diflucan. Nasal saline spray, nasonex and Claritin for nasal congestion. Wean oxygen. Nonalcoholic cirrhosis of the liver secondary to fatty liver disease: Stable. Hyperglycemia steroid induced. Continue insulin sliding scale. Continue Lantus. Titrate Lantus insulin. Hemoglobin A1c is 6.8 -borderline diabetes. Testosterone deficiency Continue home dose testosterone injections. DVT PPX: Xarelto Code status: Full
[2021-02-08] MEDS ORDERED: VANCOMYCIN 2.5 GM in NA CHLORIDE 0.9% 500 ML IVPB SCH (17:00)
[2021-02-08] MEDS: RIVAROXABAN 20 MG TABLET PO SCH (17:05)
[2021-02-09 06:15] LABS: Absolute Lymphocytes (CBC) 0.5 K/uL (0.7-4.9); Basophils % 0.3 % (0-1.3); Hematocrit 41.3 % (39.6-49.0); Lymphocytes % 2.1 % (15.3-44.8); MPV 8.5 fL (7.6-11.3); RBC Red Blood Cell Count 4.24 M/uL (4.33-5.43)
[2021-02-09 06:41] LABS: BUN Blood Urea Nitrogen 25 mg/dL (7-18); Bicarbonate 31 mmol/L (21-32); Glucose Level 218 mg/dL (74-106); Potassium 4.5 mmol/L (3.5-5.1); Sodium Level 140 mmol/L (136-145)
[2021-02-09 06:46] LABS: C-Reactive Protein < 2.90 mg/L (<3.00)
[2021-02-09] MEDS: SOD CHLORIDE 0.65% NASAL SPRAY NAS SCH ×4 (09:00→20:34)
[2021-02-09] MEDS: clonazePAM 0.5 MG TAB PO PRN ×3 (09:39→20:25)
[2021-02-09] MEDS: ASPIRIN EC 81 MG TAB PO SCH (09:39)
[2021-02-09] MEDS: ASCORBIC ACID 500 MG TABLET PO SCH ×4 (09:40→20:23)
[2021-02-09] MEDS: THIAMINE HCL 100 MG TABLET PO SCH (09:40)
[2021-02-09] MEDS: INSULIN -REGULAR HUMAN 50 UNIT/0.5 ML ML SQ SCH ×4 (09:40→20:34)
[2021-02-09] MEDS: VITAMIN D 1000 UNIT TAB PO SCH (09:40)
[2021-02-09] MEDS: INSULIN GLARGINE 100 UNITS/ML SQ SCH (09:41)
[2021-02-09] MEDS: METHYLPREDNISOLONE 40 MG INJ IV SCH ×2 (09:42→20:25)
[2021-02-09] MEDS: FLUCONAZOLE 100 MG TAB PO SCH (09:46)
[2021-02-09] MEDS: BENZONATATE 100 MG CAP PO PRN (09:46)
[2021-02-09] MEDS: ZINC SULFATE 220 MG CAP PO SCH (09:46)
[2021-02-09] MEDS ORDERED: FUROSEMIDE 20 MG/ 2ML VIAL IV ONE ×2 (11:46→13:30)
--- NOTE | 2021-02-09 11:48 | P.PN ---
Subjective Date of Service: 02/09/21 Chief Complaint: Respiratory failure PAtient is improving Review of Systems Respiratory: Shortness of Breath Physical Examination - Vital Signs Temperature: 97.2 F Blood Pressure: 135/88 Pulse: 69 Respirations: 20 Pulse Ox (%): 97 - Physical Exam General: Alert, Oriented x3, Cooperative Assessment & Plan - Problems (Diagnosis) (1) Pneumonia due to COVID-19 virus Current Visit: No Status: Acute Plan: Doing better reduce steroids titrate O2 sat of 90%. WBC elevated/ Lasix IV/ labs reviwed
--- NOTE | 2021-02-09 16:47 | P.PN ---
Subjective Date of Service: 02/09/21 Chief Complaint: Respiratory failure Subjective: Improving (feeling better, able to breathe deeper, working on getting to LTAC soon) Review of Systems 10-point ROS is otherwise unremarkable Physical Examination - Vital Signs Temperature: 98.4 F Blood Pressure: 135/88 Pulse: 69 Respirations: 20 Pulse Ox (%): 95 Assessment & Plan Physician Review Additional Text: Physical Exam General: Alert, oriented x3. NAD Respiratory: Nonlabored respirations on 15L [place] Cardiovascular: No edema. 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 Completed Baracitinib Continue Xarelto. Persistent leukocytosis, likely steroid induced, empirically covered with rocephin - started 01/27. Repeat blood culture: No growth to date Continue Diflucan. Nasal saline spray, nasonex and Claritin for nasal congestion. Wean oxygen. Nonalcoholic cirrhosis of the liver secondary to fatty liver disease: Stable. Hyperglycemia steroid induced. Continue insulin sliding scale. Continue Lantus. Titrate Lantus insulin. Hemoglobin A1c is 6.8 -borderline diabetes. Testosterone deficiency Continue home dose testosterone injections. DVT PPX: Xarelto Code status: Full Dispo: anticipate dc to LTAC in next 24-48hrs, pending bed availability Time Spent Managing Pts Care (In Minutes): 35
[2021-02-09] MEDS: RIVAROXABAN 20 MG TABLET PO SCH (17:52)
[2021-02-10 05:36] LABS: Absolute Lymphocytes (CBC) 0.4 K/uL (0.7-4.9); Basophils % 0.2 % (0-1.3); Hematocrit 42.1 % (39.6-49.0); Lymphocytes % 2.2 % (15.3-44.8); MPV 9.2 fL (7.6-11.3); RBC Red Blood Cell Count 4.34 M/uL (4.33-5.43)
[2021-02-10 06:15] LABS: Blood Morphology Comment NOT SEEN (NOT SEEN); Platelet Estimate DECR; Toxic Granulation 2+
[2021-02-10] MEDS: INSULIN -REGULAR HUMAN 50 UNIT/0.5 ML ML SQ SCH ×4 (07:30→19:44)
[2021-02-10] MEDS: FLUCONAZOLE 100 MG TAB PO SCH (09:00)
[2021-02-10] MEDS: SOD CHLORIDE 0.65% NASAL SPRAY NAS SCH ×4 (09:00→20:42)
[2021-02-10] MEDS: INSULIN GLARGINE 100 UNITS/ML SQ SCH (09:00)
[2021-02-10] MEDS: ASPIRIN EC 81 MG TAB PO SCH ×2 (09:00→10:42)
[2021-02-10] MEDS: VITAMIN D 1000 UNIT TAB PO SCH (09:00)
[2021-02-10] MEDS: METHYLPREDNISOLONE 40 MG INJ IV SCH ×2 (10:43→19:44)
[2021-02-10] MEDS: THIAMINE HCL 100 MG TABLET PO SCH (10:43)
[2021-02-10] MEDS: ZINC SULFATE 220 MG CAP PO SCH (10:43)
[2021-02-10] MEDS: ASCORBIC ACID 500 MG TABLET PO SCH ×4 (10:43→19:42)
--- NOTE | 2021-02-10 16:49 | P.PN ---
Subjective Date of Service: 02/10/21 Chief Complaint: Respiratory failure Subjective: No new changes (Doing well, without complaints, waiting bed availability for LTAC. Oxygen requirement remains the same) Review of Systems 10-point ROS is otherwise unremarkable Physical Examination - Vital Signs Temperature: 97.4 F Blood Pressure: 120/88 Pulse: 114 Respirations: 24 Pulse Ox (%): 94 Assessment & Plan Physician Review Additional Text: Physical Exam General: Alert, oriented x3. NAD Respiratory: Nonlabored respirations on 15L [place] Cardiovascular: No edema. 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 Completed Baracitinib Continue Xarelto. Persistent leukocytosis, likely steroid induced, empirically covered with rocephin - started 01/27. Repeat blood culture: No growth to date. dc'd antibiotics Continue Diflucan. Nasal saline spray, nasonex and Claritin for nasal congestion. Wean oxygen. Nonalcoholic cirrhosis of the liver secondary to fatty liver disease: Stable. Hyperglycemia steroid induced. Continue insulin sliding scale. Continue Lantus. Titrate Lantus insulin. Hemoglobin A1c is 6.8 -borderline diabetes. Testosterone deficiency Continue home dose testosterone injections. DVT PPX: Xarelto Code status: Full Dispo: anticipate dc to LTAC in next 24-48hrs, pending bed availability Time Spent Managing Pts Care (In Minutes): 45
[2021-02-10] MEDS: clonazePAM 0.5 MG TAB PO PRN ×2 (17:34→22:09)
[2021-02-10] MEDS: RIVAROXABAN 20 MG TABLET PO SCH (18:37)
[2021-02-10] MEDS: BENZONATATE 100 MG CAP PO PRN (19:42)
[2021-02-10] MEDS: MELATONIN 5 MG TABLET PO PRN (19:42)
[2021-02-11 04:18] VITALS: O2SAT 92
[2021-02-11 06:02] LABS: BUN Blood Urea Nitrogen 28 mg/dL (7-18); Bicarbonate 32 mmol/L (21-32); Glucose Level 207 mg/dL (74-106); Potassium 4.4 mmol/L (3.5-5.1); Sodium Level 140 mmol/L (136-145)
[2021-02-11 06:03] LABS: Basophils % 0.2 % (0-1.3); Hematocrit 42.6 % (39.6-49.0); MPV 8.8 fL (7.6-11.3); RBC Red Blood Cell Count 4.38 M/uL (4.33-5.43)
[2021-02-11] MEDS: INSULIN -REGULAR HUMAN 50 UNIT/0.5 ML ML SQ SCH ×4 (07:30→20:02)
[2021-02-11 08:30] LABS: Blood Morphology Comment NOT SEEN (NOT SEEN); Platelet Estimate DECR
[2021-02-11] MEDS: SOD CHLORIDE 0.65% NASAL SPRAY NAS SCH ×4 (09:00→20:03)
[2021-02-11] MEDS: clonazePAM 0.5 MG TAB PO PRN (09:07)
[2021-02-11] MEDS: THIAMINE HCL 100 MG TABLET PO SCH (09:07)
[2021-02-11] MEDS: VITAMIN D 1000 UNIT TAB PO SCH (09:07)
[2021-02-11] MEDS: ZINC SULFATE 220 MG CAP PO SCH (09:08)
[2021-02-11] MEDS: METHYLPREDNISOLONE 40 MG INJ IV SCH ×2 (09:08→20:02)
[2021-02-11] MEDS: INSULIN GLARGINE 100 UNITS/ML SQ SCH (09:10)
[2021-02-11] MEDS: ASCORBIC ACID 500 MG TABLET PO SCH ×4 (09:11→20:02)
[2021-02-11] MEDS: FLUCONAZOLE 100 MG TAB PO SCH (09:16)
[2021-02-11] MEDS ORDERED: clonazePAM 0.5 MG TAB PO PRN (09:23)
--- NOTE | 2021-02-11 13:28 | P.PN ---
Subjective Date of Service: 02/11/21 Chief Complaint: Respiratory failure Subjective: No new changes (No significant changes, doing okay, still requiring nonrebreather. Hypoxic with movement, reports continued anxiety feeling he cannot take deep breaths, associated with tachycardia) Review of Systems 10-point ROS is otherwise unremarkable Physical Examination - Vital Signs Temperature: 97.4 F Blood Pressure: 139/89 Pulse: 76 Respirations: 32 Pulse Ox (%): 97 Assessment & Plan Physician Review Additional Text: Physical Exam General: Alert, oriented x3. Appears anxious Respiratory: Mild labored respirations on 15L [place] Cardiovascular: No edema. 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 Completed Baracitinib Continue Xarelto. Persistent leukocytosis, likely steroid induced, empirically covered with rocephin - started 01/27. Repeat blood culture: No growth to date. dc'd antibiotics Continue Diflucan for pulmonology Nasal saline spray, nasonex and Claritin for nasal congestion. Wean oxygen. Nonalcoholic cirrhosis of the liver secondary to fatty liver disease: Stable. Hyperglycemia steroid induced. Continue insulin sliding scale. Continue Lantus. Titrate Lantus insulin. Hemoglobin A1c is 6.8 -borderline diabetes. Testosterone deficiency Continue home dose testosterone injections. DVT PPX: Xarelto Code status: Full Dispo: anticipate dc to LTAC in next 24-48hrs, pending bed availability Time Spent Managing Pts Care (In Minutes): 40
[2021-02-11] MEDS: clonazePAM 1 MG TAB PO PRN ×2 (15:50→20:01)
[2021-02-11] MEDS: RIVAROXABAN 20 MG TABLET PO SCH (16:11)
--- NOTE | 2021-02-11 16:54 | P.DS ---
Admission Date: 01/17/21 Discharge Date: 02/11/21 Disposition: RETIREMENT ACUTE CARE FACILITY Discharge Condition: FAIR Reason for Admission: Respiratory failure, COVID-19 pneumonia Consultations: PulmonologyDr. Serrato Procedures: CXR (01/17): FINDINGS: Worsening bilateral airspace disease compared with 01/14/2021. The heart size is within normal limits.No acute osseous abnormality. No significant pleural effusions or pneumothorax. IMPRESSION: Worsening bilateral airspace disease concerning for multifocal pneumonia. CTA chest (01/17): FINDINGS: Pulmonary arteries and vascular: Diagnostic quality bolus. Motion artifact in the lung bases. No filling defects. Heart and mediastinum: Heart size is normal. No lymphadenopathy. Thyroid gland: Visualized portions are normal. Lungs: Multifocal bilateral consolidations are present. Airways: No filling defects. No bronchiectasis. Pleura: No pneumothorax. No significant pleural effusion. Subphrenic structures: Within normal limits. Musculoskeletal and soft tissues: Within normal limits for age. IMPRESSION: 1. No evidence of proximal pulmonary embolus. Evaluation for branch emboli is limited due to motion artifact. 2. Multifocal pneumonia. Commonly reported imaging features of COVID-19 pneumonia are present. Other processes such as influenza pneumonia and organizing pneumonia, as can be seen with drug toxicity and connective tissue disease, can cause similar imaging pattern. CXR (01/23): FINDINGS: Bilateral COVID-19 pneumonia findings remain. Pattern is not substantially different from prior imaging. Heart and vasculature are normal. No measurable pleural effusion and no pneumothorax. No acute bony abnormality seen. No acute aortic findings suspected. IMPRESSION: No substantial change to the bilateral COVID-19 pneumonia findings compared with January 17. CXR (01/27): FINDINGS: Bilateral airspace disease with more confluent areas of the left lung that are similar to 01/23/2021 per the lung volumes have decreased, however per The heart size is within normal limits.No acute osseous abnormality. No significant pleural effusions or pneumothorax. IMPRESSION: Decreased lung volumes but otherwise similar appearance of widespread bilateral airspace disease consistent with multifocal pneumonia. CXR (01/30): FINDINGS: No significant change bilateral pulmonary opacities. The heart is borderline enlarged IMPRESSION: No significant change in the bilateral pneumonia CXR (02/05): IMPRESSION: A PICC line has been placed. The tip is not clearly visualized but probably lies within mid superior vena cava CXR (02/06): FINDINGS: Portable technique limits examination quality. Tip of the right PICC line appears at the atrial caval junction. Asymmetric bilateral pulmonary opacities, greater on the left, appear unchanged since yesterday's study. Heart is mildly enlarged in size. 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 improved/resolved Hyperkalemia, resolved Brief History of Present Illness: 50-year-old male with history of cirrhosis of liver secondary to fatty liver presents to the emergency department for shortness of breath. Patient tested positive for Covid on 01/04/2021 and was admitted on 01/14/2021 for 1 day. Patient was treated with IV steroids and sent home on home oxygen 2 L per nasal cannula. Over the course of the last 24 hours patient's ox requirement has significantly increased, patient was saturating in the 60s to 70s on 4 L per nasal cannula at home. Patient evaluated in the emergency department, currently on 15 L/min via nasal cannula saturating in the low 90s. Worsening chest x-ray, ED provider wishes to admit for further evaluation and management. Hospital Course: Patient was admitted, treated per Covid protocol with steroids, vitamin supplementation, anticoagulation. He had a prolonged hospitalization due to slow improvement. He has been stable throughout his hospitalization, and has gr adual improvement from requiring 100% FiO2 BiPAP down to 15 L nonrebreather. Early on in his hospitalization he was having some pain from hemorrhoids which improved with rectal suppositories. Throughout his hospitalization he has been experiencing anxiety related to his dyspnea. He has been managed well with Klonopin. He has had intermittent sinus tachycardia related to this anxiety and after exertion. He has been stable for many days and is deemed appropriate for transfer to LTAC. Vital Signs/Physical Exam: Physical Exam General: Alert, oriented x3. Respiratory: Mild labored respirations on 15L NC Cardiovascular: No edema. Sinus tachycardia 90-110 Gastrointestinal: Soft and benign, Non-distended, No tenderness Musculoskeletal: No joint swelling Integumentary: No rashes, No erythema Temp Pulse Resp BP Pulse Ox 97.4 F 76 32 H 139/89 97 02/11/21 13:28 02/11/21 13:28 02/11/21 13:28 02/11/21 13:28 02/11/21 13:28 Laboratory Data at Discharge: WBC 19.20 K/uL (4.3-10.9) H 02/11/21 05:40 Hgb 14.3 g/dL (13.6-17.9) 02/11/21 05:40 Hct 42.6 % (39.6-49.0) 02/11/21 05:40 Plt Count 60 K/uL (152-406) L 02/11/21 05:40 PT 12.2 SECONDS (9.5-12.5) 01/17/21 18:50 INR 1.06 01/17/21 18:50 Sodium 140 mmol/L (136-145) 02/11/21 05:40 Potassium 4.4 mmol/L (3.5-5.1) 02/11/21 05:40 BUN 28 mg/dL (7-18) H 02/11/21 05:40 Creatinine 0.53 mg/dL (0.55-1.3) L 02/11/21 05:40 Glucose 207 mg/dL (74-106) H 02/11/21 05:40 Magnesium 2.4 mg/dL (1.8-2.4) 02/02/21 03:37 Total Bilirubin 0.7 mg/dL (0.2-1.0) 01/29/21 03:36 AST 25 U/L (15-37) 01/29/21 03:36 ALT 43 U/L (12-78) 01/29/21 03:36 Alkaline Phosphatase 132 U/L (45-117) H 01/29/21 03:36 Home Medications: NK [No Home Meds] 01/18/21 Physician Discharge Instructions: Patient was admitted and treated for COVID-19 pneumonia, he had a prolonged hospitalization, with slow improvement. Patient to go to LTAC. LTAC to continue current medications. Further adjustments to be done as needed the LTAC. Diet: ADA Activity: Ad ros Followup: NONE,NONE [Primary Care Provider] - Time spent managing pt's care (in minutes): 60
[2021-02-11] MEDS ORDERED: clonazePAM 0.5 MG TAB PO ONE (17:00)
[2021-02-11 17:14] VITALS: BP 143/95; TEMP 97.3
[2021-02-11] MEDS ORDERED: LORazepam 2 MG/ML VIAL IV ONE (18:00)
[2021-02-11] MEDS: BENZONATATE 100 MG CAP PO PRN (20:02)
[2021-02-11] MEDS: MELATONIN 5 MG TABLET PO PRN (20:02)
== END 2021-02-11 20:20 | DRG 177 ==
LOC: ER 18:34 → ERHOLD 20:11 → 4TH 01-20 14:10
PROVIDERS: ADMIT Hospitalist; ATTEND Hospitalist
PROC: 5A09457 Assistance with Respiratory Ventilation, 24-96 Consecutive Hours, Continuous Positive Airway Pressure (ICD-10-PCS; 2021-01-19)
PROC: 02HV33Z Insertion of Infusion Device into Superior Vena Cava, Percutaneous Approach (ICD-10-PCS; principal; 2021-02-05)
DX: U07.1 COVID-19 (principal); J12.82 Pneumonia due to coronavirus disease 2019; J96.01 Acute respiratory failure with hypoxia; F41.9 Anxiety disorder, unspecified; K74.60 Unspecified cirrhosis of liver; K76.0 Fatty (change of) liver, not elsewhere classified; R00.0 Tachycardia, unspecified; E87.5 Hyperkalemia; R73.9 Hyperglycemia, unspecified; D72.829 Elevated white blood cell count, unspecified; T38.0X5A Adverse effect of glucocorticoids and synthetic analogues, initial encounter; Y92.230 Patient room in hospital as the place of occurrence of the external cause; E29.1 Testicular hypofunction; K64.9 Unspecified hemorrhoids; Z99.81 Dependence on supplemental oxygen
CPT/HCPCS: 36415; 36569; 71045; 71275; 80048; 80053; 80076; 80202; 81003; 81015; 82728; 82805; 82947; 83036; 83735; 83880; 84132; 84145; 84484; 85025; 85027; 85379; 85610; 86140; 87040; 93005; 94002; 94003; 94010; 94660; 94760; 96361; 96374; 99285; J0692; J0696; J1815; J1940; J2270; J2920; J2930; J3370; J7030; J7040; Q9967